=== PATIENT | female | born 1965 | race Caucasian/White ===

== ENCOUNTER → 2016-06-08 | Outpatient (CLI) | payer OTHER ==
[~2016-06-08] VITALS: Ht 175.3 cm; Wt 88.5 kg
[~2016-06-08] MED LIST: ACCUNEB0.63 MG/3 IH; ALLERGY RELIEF1 EAC3 PO; ALLERGY RELIEF10 M5 PO; AMITIZA 24 MCG24 MC1 PO; ASPIRIN EC81 M1 PO; ASPIRIN81 M2 PO; BACLOFEN 10 MG10 MG PO; BACLOFEN 10MG T10 M1 PO; BACLOFEN20 MG PO; BROMOCRIPTINE2.5 M1 PO; BROMOCRIPTINE2.5 M2 PO; BUDEPRION SR150 MG PO; CENTRUM SILVER1 EAC4 PO; CLARITIN10 MG PO; DESYREL100 MG PO; DEXILANT30 MG PO; DEXILANT60 MG PO; DOLOPHINE HCL10 MG PO; DOXYCYCLINE 10100 MG PO; DULCOLAX PO; DUONEB 2.5-0.5 M3 ML IH; ESTRADIOL 1 MG T1 M1 PO; ESTRADIOL1 EAC4 TD; FLOMAX PO; GEMFIBROZIL 60600 MG PO; HORMONE THERAPY; HYDROXYZINE HCL10 M1 PO; HYDROXYZINE HCL25 M1 PO; KLOR-CON 1010 MEQ PO; LAMICTAL XR100 MG PO; LAMICTAL XR300 MG PO; LAMOTRIGINE100 MG PO; LAMOTRIGINE150 MG PO; LASIX 20 MG TAB20 MG PO; LEVAQUIN 500 M500 M1 PO; LIPITOR 20 MG T20 M1 PO; LISINOPRIL20 MG PO; LYRICA 75 MG CA75 MG PO; LYRICA100 MG PO; MEGARED PLANT-300 MG PO; METFORMIN HCL500 MG PO; METHADONE HCL 110 M1 PO; METHADONE HCL 110 MG PO; METHADOSE PO; METHADOSE10 M1 PO; METOCLOPRAM5 MG/5 ML PO; METOCLOPRAMIDE10 MG PO; MOBIC15 MG PO; MUCINEX TA600 MG/TA1 PO; MUCINEX TA600 MG/TA2 PO; MUCINEX600 MG PO; NASONEX17 GM NS; NEURONTIN 300300 M1 PO; OXCARBAZEPINE150 MG PO; OXCARBAZEPINE300 MG PO; OXYCODONE HCL15 MG PO; OXYGEN; PREDNISONE 10 M10 MG PO; PROAIR HFA8.5 GM IH; PROGESTERONE200 MG PO; PROTONIX40 M2 PO; QVAR HFA 880 MCG/UN1 INH; REGLAN 10 MG TA10 M1 PO; REGLAN 10 MG TA10 MG PO; REQUIP 1 MG TABL1 M1 PO; REQUIP0.5 MG PO; RISPERDAL 3 MG T3 M1 PO; RISPERDAL M-TAB2 MG PO; RISPERDAL2 MG PO; ROXICODONE15 M1 PO; SENOKOT-S1 TA1 PO; SEROQUEL 25 MG25 M1 PO; SEROQUEL 25 MG25 MG PO; SINGULAIR 10 MG10 M1 PO; SYMBICORT160 MCG/4. INH; TAMSULOSIN HCL0.4 M1 PO; TRAZODONE 150150 M1 PO; TRILEPTAL 300300 MG PO; TRILEPTAL150 MG PO; VENTOLIN HFA 1818 GM INH; VENTOLIN17 GM INH; VITAMIN D 5050000 I1 PO; VITAMIN D PO; VITAMIN D3400 UNIT PO; VOLTAREN GEL 1100 G2 TOP; ZANTAC 7575 MG PO; [UNRECOGNIZED DRUG - CODE] PO; [UNRECOGNIZED DRUG - OTHER] PO; [UNRECOGNIZED DRUG - OTHER] PO
--- NOTE | ~2016-06-08 | HPC ---
[facility] [address] [place] [address] PAIN MANAGEMENT CONSULTATION Name: SUNNY DENSON [id number] Admission: 06/08/16 Attend Phys: Mike Fernandez DO Discharge: Date of : 63 Report #: [id number] THIS REPORT FOR: //name// CC: Mike Fernandez DO HISTORY OF PRESENT ILLNESS: The patient is a 50-year-old female typically treated for lumbar radiculopathy status post decompressive laminectomy, neuropathic pain requiring complex medication management. She was last seen in the pain clinic 05/15/2016, continued on her baseline narcotic, methadone 10 mg 2 in the morning, 1 at noon, and 2 at night, oxycodone 15 mg 4 times a day. She uses two membrane stabilizing agents, oxcarbazepine and Lyrica, 300 mg of oxcarbazepine t.i.d. and 100 mg of Lyrica 1 in the morning and 2 at night. She uses Requip for RLS type symptoms 0.5 mg 1 the morning, 2 at night. Last urine drug screen was accomplished at her last visit 05/15/2016, positive for prescribed medications. She returns to pain clinic today with an acute change in symptoms, she had fallen in getting out of bed. She had acute injury to her neck. She does use supplemental oxygen and she fell, her head somewhat got caught between the oxygen tank and the bed. With increasing pain in the neck, left shoulder and arm, she presented to her primary care physician. MRI of the cervical spine was accomplished 05/25/2016. I reviewed the MRI findings with the patient today. 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 PHYSICAL EXAMINATION: NEUROLOGIC: Cranial 2-12 are grossly intact. Cervical range of motion is limited in all planes. Tenderness in the superior cervical facets, left deltoid strength is diminished, triceps on the left diminished to little as well. Hand grasp is symmetric. Deep tendon reflexes remains preserved. Vital signs stable as noted on the EMR. Gait is tandem. ASSESSMENT: 1. Lumbar radiculopathy status post decompressive laminectomy, neuropathic pain requiring complex medication management, stable on baseline narcotics. 2. Cervical radiculopathy with component of cervical spondylosis. RECOMMENDATIONS: 1. Cervical epidural injection under fluoroscopy today. 2. Follow up in 10 days for reevaluation and consideration for left superior cervical facet joint injections depending on clinical exam presentation at that time. ASSESSMENT: Cervical radiculopathy. [address] [address] PAIN MANAGEMENT CONSULTATION Name: SUNNY DENSON Room #: REG [facility] Eason#: [id number] Admission: 06/08/16 Attend Phys: Mike Fernandez DO Discharge: Date of : 63 Report #: [id number] PROCEDURE: Cervical epidural injection under fluoroscopy. PROCEDURE NOTE: After written and informed consent was obtained including risk of dural puncture, spinal cord trauma, paralysis and increased pain, the patient was taken to the fluoroscopy suite and placed in the prone position, with appropriate abdominal bolstering, neck was flexed, palms under the thighs. Skin was prepped with ChloraPrep. Sterile draping was applied. Skin wheal with 1% Xylocaine was raised. A 22-gauge 3-1/2 inch epidural Tuohy needle was placed via a midline approach at the C7-T1 interspace, advanced under biplanar fluoroscopy using continuous loss of resistance. With appropriate loss of resistance at the expected depth on lateral view, the glass loss of resistance syringe was disconnected. A low volume extension tubing was connected to the needle and a 5 mL syringe. Negative aspiration for cerebrospinal fluid or blood was noted. A 1 mL of Omnipaque was injected which showed spread within the epidural space on biplanar fluoroscopy. This was followed with 60 mg of triamcinolone plus 1 mL of 1.5% preservative Xylocaine. Needle was withdrawn to the interspinous ligament, 0.5 mL of Xylocaine was used to flush the needle. The needle was then completely withdrawn. The area was cleansed. Band-Aid was applied. The patient was allowed to move off the procedure table and ambulated to the recovery room, monitored for an appropriate period of time, discharged in good and stable condition. <ELECTRONICALLY SIGNED> By: Mike Fernandez DO 06/08/16 1408 [id number] [id number] Mike Fernandez DO /nt
[2016-06-08 08:09] VITALS: BP 144/86
== END | disposition home or self-care (01) ==
LOC: PAIN 07:04
DX: M54.12 Radiculopathy, cervical region (principal); M54.16 Radiculopathy, lumbar region

== ENCOUNTER → 2016-07-07 | Outpatient (CLI) | payer OTHER ==
[~2016-07-07] VITALS: Ht 170.2 cm; Wt 88.0 kg
--- NOTE | ~2016-07-07 | HPC ---
[facility] [address] [place] [address] PAIN MANAGEMENT CONSULTATION Name: SUNNY DENSON Room #: REG [facility]#: [id number] Admission: 07/07/16 Attend Phys: Mike Fernandez DO Discharge: Date of : 63 Report #: [id number] THIS REPORT FOR: //name// CC: FAM unknown Mike Fernandez HISTORY OF PRESENT ILLNESS: The patient is a very pleasant 51-year-old female, long treated for symptomatic lumbar radiculopathy, status post decompressive laminectomy, requiring complex medication management; component of cervical radiculopathy and restless legs syndrome and neuropathic pain component. The patient was last seen in pain clinic 06/08/2016. We did a cervical epidural injection for what appeared to be cervical radicular symptoms, though she had really nominal efficacy from the injection. She has been maintained on high-dose narcotics, though we have gradually titrated up to this dose, methadone 10 mg 2 tablets in the morning, 1 at noon and 2 at night with oxycodone 15 mg 4 times a day for breakthrough pain. I am aware that this is a supratherapeutic dose by definition, equating to roughly 300 mg of morphine equivalence, though we have tried rotating the lower doses with diminished effectiveness and negative impact on functional status. The patient has been maintained on Lyrica 100 mg t.i.d. (1 in the morning, 2 at night) and oxcarbazepine 300 mg t.i.d. (1 in the morning and 2 at night) with Requip for RLS. She returns to pain clinic today. We had a prolonged visit from 08:00 a.m. to 08:25. Ultimately, taken to the procedure room at 08:26. The patient has had significant change in medical status. Her general education instructor physician has diagnosed primary biliary cirrhosis and somewhat critical hyponatremia. We reviewed her medications. No acetaminophen or significant agents impacting liver status are noted, though she does take Tegretol which is associated with hyponatremia. We have elected to try and wean this agent, decrease from 1 in the morning and 2 at night to b.i.d. for 1 week, at bedtime for 1 week and then off. Discussed that we were using this for neuropathic pain component. May have some increase in the burning, electric sensation of pain. Again, we are also using methadone as her primary opiate with its NMDA receptor activity, which can also help with neuropathic pain component. She tells me today that she is having increasing pain in the left side of her neck and this morning she woke up with her left thumb, index and ring finger numb, with subjective paresthesia. PHYSICAL EXAMINATION: GENERAL: Shows pleasant 51-year-old female, moderately obese. BMI is 30.4 kilograms per meter squared. She continues to smoke and was counseled regarding the same. VITAL SIGNS: Blood pressure is 98/63, pulse 106 and respirations 22. [address] [address] PAIN MANAGEMENT CONSULTATION Name: SUNNY DENSON Room #: REG [facility] Eason#: [id number] Admission: 07/07/16 Attend Phys: Mike Fernandez DO Discharge: Date of : 63 Report #: [id number] NEUROLOGIC: Cranial nerves 2-12 are grossly intact. Cervical range of motion is limited with pain in all planes, though no classic radicular pain, "negative Lhermitte". Pain appears to be in the superior aspect of the cervical facets on the left side. Pain in the left shoulder, though no discrete trigger points are noted. Passive range of motion of the shoulder is good. Upper extremity strength is symmetric for deltoid, biceps and triceps and grasp strength is symmetric. Deep tendon reflexes are preserved. She does, however, have a positive Tinel's over the left radial. ASSESSMENT: Lumbar radiculopathy, status post decompressive laminectomy; chronic pain syndrome, requiring complex medication management and a new diagnosis of primary biliary cirrhosis and hyponatremia. RECOMMENDATIONS: 1. Continue all medications with the caveat that we will wean trileptal due to hyponatremia being a fairly common side effect. 2. What appears to be a component of left carpal tunnel syndrome with paresthesia in the thumb, index and ring finger that is new, noted primarily in the a.m. with positive Tinel's over the radial artery. I suggest the patient purchase an [id number] wrist splint to wear at bedtime for the left wrist. 3. With new diagnosis of cervical spondylosis in the patient who is unable to take nonsteroidal anti-inflammatory medications due to compromised renal function (though she is using topical Voltaren gel with transient efficacy), we have elected to proceed with fluoroscopic-guided cervical facets times 2. ASSESSMENT: Symptomatic cervical spondylosis. PROCEDURE: Cervical facet joint injection times 2 on the left. PROCEDURE NOTE: After written informed consent was obtained, the patient was taken to the fluoroscopy suite and placed in prone position. After localizing the cervical facets, palpation was used to identify the 2 primary pain generators (C2-C3 and C3-C4). We elected to proceed at this level. Two skin wheals with Xylocaine were raised. Two 22-gauge stylet needles were placed to contact posterior aspect of the left C2-C3 and C3-C4 cervical facets, along the middle of the lateral mass. AP and lateral projections showed good needle placement, with needle approaching the posterior aspect of the joints. Negative aspiration was accomplished. Three milligrams of Decadron plus 1 mL of 0.5% preservative-free bupivacaine was injected in each needle. Fluoroscopy time was under 15 seconds. [place] removed. The area was cleansed, Band-Aids applied. The patient monitored for an appropriate period of time and discharged in good and stable condition. Follow up with me in 2 weeks for reevaluation. <ELECTRONICALLY SIGNED> By: Mike Fernandez DO 07/07/16 1138 [id number] Mike Fernandez DO /nt
[2016-07-07 08:07] VITALS: BP 98/63
== END | disposition home or self-care (01) ==
LOC: PAIN 06-16 10:00
DX: M47.812 Spondylosis without myelopathy or radiculopathy, cervical region (principal); M54.16 Radiculopathy, lumbar region; G89.4 Chronic pain syndrome; K74.5 Biliary cirrhosis, unspecified

== ENCOUNTER → 2016-07-28 | Outpatient (CLI) | payer OTHER ==
[~2016-07-28] VITALS: Ht 170.2 cm; Wt 88.0 kg
[~2016-07-28] MED LIST changes: +ACTIGALL300 MG PO; +LINZESS145 MCG PO
--- NOTE | ~2016-07-28 | HPC ---
[facility] [address] [place] [address] PAIN MANAGEMENT CONSULTATION Name: SUNNY DENSON [facility]: [facility] [id number] Admission: 07/28/16 Attend Phys: Mike Fernandez DO Discharge: Date of : 63 Report #: [id number] THIS REPORT FOR: //name// CC: FAM unknown Mike Fernandez The patient is a very pleasant 51-year-old female, well known to the pain clinic, being treated for lumbar radiculopathy, status post decompressive laminectomy, restless leg syndrome, neuropathic pain, requiring complex medication management. At last visit, we noted component of cervical spondylosis and cervical radiculopathy. She was given a cervical epidural injection on 06/08/2016 with nominal improvement of symptoms. Pain was primarily in left neck. At last visit 07/07/2016, I proceed with left C2-C3 and C3-C4 cervical facet joint injections done under fluoroscopy. The patient returns to pain clinic today, noting that injection provided near 100% relief, which is ongoing. Neck, shoulders, and arm is actually much better. She did unfortunately fall last week. She states that her left ankle "gave out". Objectively, physical exam remains symmetric. She does have a little edema over the lateral aspect of the ankle. It appears she sprained her ankle. Unfortunately, she also fell on outstretched left wrist. She has followed up with Orthopedics. By report, there are no osseous injuries, though she does have soft tissue injury in the wrist, and is now immobilizing the left wrist. From a pain standpoint, she states she is doing reasonably well. Subsequent to the fall, she has some low back pain, but it does not radiate into the buttocks. No saddle anesthesia. No myelopathic symptoms were noted. PHYSICAL EXAMINATION: Otherwise relatively unchanged. A 51-year-old female, BMI is 30.4 kilograms per meter squared. Blood pressure is 158/72, pulse is 96, respirations 16. Subjective pain score is 6 on a 0-10 visual analog scale. Rises from the chair using armrest. Gait is modestly antalgic. Though lower extremity strength is symmetric. Again, little bit of pain in the left ankle, some edema here, but the mortise is intact. Lumbar flexion is limited. We reviewed the fact that opiate medications are being used to provide analgesia adequate to support activities of daily living, not attempting to achieve a specific pain score on the 0-10 Visual Analog Scale. The current opiate medications are providing sufficient analgesia to allow the patient to participate in activities of daily living. The patient is not exhibiting any aberrant behavior suggestive of drug diversion. The patient is not having any adverse reactions to medications. The patient is not suffering from daytime somnolence or mental acuity changes. The patient is managing opiate-induced constipation with appropriate akbo-xcm-nacemux agents and dietary considerations. The patient was counseled on concern for caution with operating [address] [address] PAIN MANAGEMENT CONSULTATION Name: SUNNY DENSON Room #: REG [facility] Eason#: [id number] Admission: 07/28/16 Attend Phys: Mike Fernandez DO Discharge: Date of : 63 Report #: [id number] a motor vehicle while using opiate medications. A physical exam was performed and the patient's functional status was evaluated. All patients with back pain were advised against the bed rest greater than 4 days and were advised to return to normal activities. Pain score assessment was noted and the treatment plan was reviewed with the patient. All current medications, both prescribed and OTC were reviewed and reconciled on the electronic medical record. Tobacco screening was accomplished and smoking cessation was advised when indicated. BMI was noted and diet/exercise modification was recommended for all patients following outside normal parameters. I reviewed with the patient today their responsibilities to safeguard prescription medications, reviewed their responsibility to utilize medications only as prescribed by the physician. They are to seek and receive pain medications only from 1 physician group ( [facility]). They are to use 1 pharmacy and keep the clinic informed if they change pharmacies. Their responsibilities include making followup visits in a timely fashion and to avoid abrupt discontinuation of medication usage. Their responsibilities further include bringing their medications (bottles from the pharmacy with residual pills) to the visit for possible confirmation of pill counts and the patient understands it is their responsibility to submit to random drug screens to ensure both that the medications prescribed are present, and that no other controlled substances are present. All prescriptions provided today were generated electronically. ASSESSMENT: Lumbar radiculopathy, status post decompressive laminectomy, neuropathic pain requiring complex medication management, left cervical spondylosis, stable on baseline medications. RECOMMENDATION: Continue methadone 10 mg 2 in the morning, 1 at noon, and 2 at night, oxycodone 15 mg 4 times a day, Lyrica 100 mg 1 in the morning and 2 at night. We did wean oxcarbazepine at last visit due to some hyponatremia. RECOMMENDATIONS: The patient notes she has successfully weaned this agent. No dramatic change in neuropathic pain or functional status. I have taken the liberty of writing for 3 months of current medications. Follow up at that time, earlier if needed. <ELECTRONICALLY SIGNED> By: Mike Fernandez DO 07/31/16 1538 [id number] Mike Fernandez DO /karri
[2016-07-28 08:25] VITALS: BP 158/72
== END ==
LOC: PAIN 06:41
DX: M47.22 Other spondylosis with radiculopathy, cervical region (principal); M96.1 Postlaminectomy syndrome, not elsewhere classified; G25.81 Restless legs syndrome; I10 Essential (primary) hypertension; F32.9 Major depressive disorder, single episode, unspecified; F17.210 Nicotine dependence, cigarettes, uncomplicated

== ENCOUNTER → 2016-08-10 | Outpatient (CLI) | payer OTHER ==
[~2016-08-10] VITALS: Ht 170.2 cm; Wt 88.9 kg
--- NOTE | ~2016-08-10 | HPC ---
[facility] [place] [address] PAIN MANAGEMENT CONSULTATION Name: SUNNY DENSON Room #: REG [facility].#: [id number] Admission: 08/10/16 Attend Phys: Mike Fernandez DO Discharge: Date of : 63 Report #: [id number] THIS REPORT FOR: //name// CC: JEREMY Fernandez The patient is a 51-year-old female long known to the pain clinic, typically treated for lumbar radiculopathy status post decompressive laminectomy, chronic pain syndrome requiring complex medication management. The patient presents to pain clinic today with increasing pain. Chronic axial back and radicular pain remains problematic. Last visit 07/28/2016, the patient had been in the hospital with multiple issues, specifically noting hyponatremia. Her physicians had suggested she wean Tegretol, which we did. Unfortunately, this has significantly exacerbated her neuropathic pain. She has now been ostensibly stable for some time. With increasing pain, we elected to restart her oxcarbazepine, we will start at simply one 150 mg tablet at bedtime for 3 nights and then titrate up to b.i.d. Will otherwise continue baseline narcotic medication unchanged, including baclofen 20 mg b.i.d.; methadone 10 mg 2 in the morning, 1 at noon, 2 at night and oxycodone 15 mg immediate release up to 4 a day. She is having increasing pain in her neck, left side. We had done cervical facet joint injections in this area in the past with greater than 80% overall improvement for many months. PHYSICAL EXAMINATION: Shows specific tenderness over the superior facets on the left side. Pain is exacerbated with cervical rotation and flexion, extension. No radicular component is noted. ASSESSMENT #1: Symptomatic lumbar radiculopathy status post decompressive laminectomy with neuropathic pain component. RECOMMENDATIONS: We will resume oxcarbazepine as noted above. ASSESSMENT #2: Acute exacerbation of cervical spondylosis. RECOMMENDATIONS: Left C2-C3 and C3-C4 facet joint injections under fluoroscopy. PROCEDURE NOTE: After written informed consent was obtained, the patient was taken to the fluoroscopy suite and placed in prone position. After sterile prep and drape, skin wheal was raised. Two 22-gauge stylet needles were placed to contact posterior aspect of the left C2-C3 and left C3-C4 cervical facet. The AP and lateral projections showed good needle placement. A 20 mg triamcinolone plus 1 mL of 0.5% preservative-free bupivacaine was injected into and around both joints. Needle was removed, area was cleansed, Band-Aids applied. The [address] [address] PAIN MANAGEMENT CONSULTATION Name: SUNNY DENSON Room #: REG JA[facility]INE Eason#: [id number] Admission: 08/10/16 Attend Phys: Mike Fernandez DO Discharge: Date of : 63 Report #: [id number] patient monitored for an appropriate period of time, discharged in good and stable condition, noting dramatic improvement of baseline pain, in fact, noting her neck pain was absent on discharge. <ELECTRONICALLY SIGNED> By: Mike Fernandez DO 08/11/16 1308 [id number] 0719 Mike Fernandez DO /nt
[2016-08-10 12:42] VITALS: BP 159/90
== END ==
LOC: PAIN 09:51
DX: M47.812 Spondylosis without myelopathy or radiculopathy, cervical region (principal); M54.16 Radiculopathy, lumbar region; M96.1 Postlaminectomy syndrome, not elsewhere classified; G89.4 Chronic pain syndrome; I10 Essential (primary) hypertension; F17.210 Nicotine dependence, cigarettes, uncomplicated; F32.9 Major depressive disorder, single episode, unspecified

== ENCOUNTER → 2016-10-19 | Outpatient (CLI) | payer OTHER ==
[~2016-10-19] VITALS: Ht 170.2 cm; Wt 91.2 kg
[2016-10-19 10:01] VITALS: BP 119/74
== END | disposition home or self-care (01) ==
LOC: PAIN 06:44
DX: M47.22 Other spondylosis with radiculopathy, cervical region (principal); G62.9 Polyneuropathy, unspecified; Z98.890 Other specified postprocedural states; G30.9 Alzheimer's disease, unspecified; F02.80 Dementia in other diseases classified elsewhere, unspecified severity, without behavioral disturbance, psychotic disturbance, mood disturbance, and anxiety; F17.200 Nicotine dependence, unspecified, uncomplicated

== ENCOUNTER → 2017-01-12 | Outpatient (CLI) | payer OTHER ==
[~2017-01-12] VITALS: Ht 170.2 cm; Wt 90.9 kg
[~2017-01-12] MED LIST changes: +ASPIR 8181 M1 PO
--- NOTE | ~2017-01-12 | HPC ---
[facility] [place] [address] PAIN MANAGEMENT CONSULTATION Name: SUNNY DENSON Room #: REG CL Jenaro#: [id number] Admission: 01/12/17 Attend Phys: Mike Fernandez DO Discharge: Date of : 63 Report #: [id number] THIS REPORT FOR: //name// CC: William Fernandez DATE OF SERVICE: 01/12/2017 DATE OF SERVICE: 01/12/2017 HISTORY OF PRESENT ILLNESS: The patient was somewhat pleasant 51-year-old female, long treated for symptomatic lumbar radiculopathy status post decompressive laminectomy, neuropathic pain, cervical radiculopathy requiring high risk complex medication management. Last seen in the pain clinic 10/19/2016. We continued the patient on baseline medication including methadone 10 mg 2 in the morning, 1 at noon, and 2 at night, oxycodone 15 mg 4 times a day, Lyrica 100 mg t.i.d., baclofen 20 mg b.i.d., Voltaren gel topically. Last urine drug screen on 05/15/2016 was positive for prescribed medications. She returns to pain clinic today, she is wearing a surgical dressing on the left upper extremity. She had a left ulnar nerve transposition on 01/03/2017. She has dramatic ecchymosis around the shoulder, upper arm and forearm. She tells me she had a prescription for oxycodone from her surgeon "for a few days." After she left the office; however, we did get a call from the patient's pharmacy, noting that she had just filled yesterday prescription from the surgeon for oxycodone 5 mg, dispensed #84 tablets. Apparently, she had also had a prior prescription 01/04/2017 for oxycodone 10 mg #30 from her primary care physician, ostensibly in anticipation of the surgery. This latter is in direct violation of her opiate consent to treat contract. I was aware of her surgery and told her she could have a short course of pain medication from her surgeon. It appears that she is now more aggressively taking opiates then I had been aware of. She does note that pain is 7 on VAS primary pain remains in the low back, left shoulder with significant pain in the left elbow secondary to the surgery, though this appears to be improving. She still continues to take care of her dytigh-xb-itx (actually her significant other's father) who does have Alzheimer's. During her surgical convalescence, apparently, her significant other's brother came and cared both for the father and for the patient. She continues to smoke and was counseled regarding same. PHYSICAL EXAMINATION: Otherwise, physical exam is unchanged. A 51-year-old female, BMI is 39.4 kilograms per meter squared. Vital signs stable as noted in the EMR. Ecchymosis as noted about the left arm, elbow, forearm down to the wrist. Does have a positive Tinel over the radial aspect of the ulnar. [address] [address] PAIN MANAGEMENT CONSULTATION Name: SUNNY DENSON Room #: REG JAZZMINE Eason#: [id number] Admission: 01/12/17 Attend Phys: Mike Fernandez DO Discharge: Date of : 63 Report #: [id number] is negative on that side. Her surgeon suggested that the paresthesia in the left thumb, index and long finger and the positive Tinel were secondary to blood accumulating and pressing on radial nerve. This seems logical, but suggest she follow up with the hand surgeon if symptoms continue. We reviewed the fact that opiate medications are being used to provide analgesia adequate to support activities of daily living, not attempting to achieve a specific pain score on the 0-10 Visual Analog Scale. The current opiate medications are providing sufficient analgesia to allow the patient to participate in activities of daily living. The patient is not exhibiting any aberrant behavior suggestive of drug diversion. The patient is not having any adverse reactions to medications. The patient is not suffering from daytime somnolence or mental acuity changes. The patient is managing opiate-induced constipation with appropriate sand-ihd-zcadqht agents and dietary considerations. The patient was counseled on concern for caution with operating a motor vehicle while using opiate medications. A physical exam was performed and the patient's functional status was evaluated. All patients with back pain were advised against the bed rest greater than 4 days and were advised to return to normal activities. Pain score assessment was noted and the treatment plan was reviewed with the patient. All current medications, both prescribed and OTC were reviewed and reconciled on the electronic medical record. Tobacco screening was accomplished and smoking cessation was advised when indicated. BMI was noted and diet/exercise modification was recommended for all patients following outside normal parameters. I reviewed with the patient today their responsibilities to safeguard prescription medications, reviewed their responsibility to utilize medications only as prescribed by the physician. They are to seek and receive pain medications only from 1 physician group ([facility]). They are to use 1 pharmacy and keep the clinic informed if they change pharmacies. Their responsibilities include making followup visits in a timely fashion and to avoid abrupt discontinuation of medication usage. Their responsibilities further include bringing their medications (bottles from the pharmacy with residual pills) to the visit for possible confirmation of pill counts and the patient understands it is their responsibility to submit to random drug screens to ensure both that the medications prescribed are present, and that no other controlled substances are present. All prescriptions provided today were generated electronically. ASSESSMENT: Lumbar radiculopathy status post decompressive laminectomy, neuropathic pain requiring high risk complex medication management. Cervical radiculopathy with status post left ulnar transposition. The patient with multiple psychiatric comorbidities on many central acting drugs including trazodone, Requip, Lamictal, Risperdal. RECOMMENDATION: Continue baseline medication unchanged, methadone 10 mg 2 in [facility] [address] [place] [address] PAIN MANAGEMENT CONSULTATION Name: SUNNY DENSON Room #: REG [facility].#: [id number] Admission: 01/12/17 Attend Phys: Mike Fernandez DO Discharge: Date of : 63 Report #: [id number] the morning, 1 at noon, and 2 at night, oxycodone 15 mg 4 times a day, limit #120 tablets. Does not require prescription for Lyrica, baclofen or Voltaren gel topically. Of note, after I received contact from her pharmacy stating she had had 84 oxycodone 5 mg tablets filled yesterday, this should equate to 28 oxycodone 15 mg tablets. I asked the pharmacist to decrease her initial prescription from 120 to 100 tablets. We will address this at her next visit. Buccal swab was accomplished today. In total, approximately 30 minutes was spent with the patient counseling the patient and reviewing interval history. By: 1230 1517 Mike Fernandez DO /karri
[2017-01-12 08:32] VITALS: BP 136/71
== END | disposition home or self-care (01) ==
LOC: PAIN 06:56
DX: M54.16 Radiculopathy, lumbar region (principal); Z98.890 Other specified postprocedural states; G62.9 Polyneuropathy, unspecified; M54.12 Radiculopathy, cervical region; Z68.39 Body mass index [BMI] 39.0-39.9, adult; Z79.899 Other long term (current) drug therapy; F17.200 Nicotine dependence, unspecified, uncomplicated

== ENCOUNTER → 2017-03-30 | Outpatient (CLI) | payer OTHER ==
[~2017-03-30] VITALS: Ht 170.2 cm; Wt 93.7 kg
[~2017-03-30] MED LIST changes: -ACCUNEB0.63 MG/3 IH; +ALBUTEROL2.5 MG/31 INH; +CLONIDINE0.1 PO; +COMBIVENT INH; +CYMBALTA60 MG PO; +ESTROVEN MAX400 MCG PO; -LAMICTAL XR300 MG PO; +LIORESAL 10 MG10 MG PO; +METHADONE HCL5 MG PO; +NAMENDA 10 MG T10 MG PO; +OXYCODONE HCL10 MG PO; +PROBIOTIC1 EAC1 PO; +RANITIDINE HCL300 MG PO; +TRAZODONE HCL100 MG PO; +VICTOZA0.6 MG/0.1 SUBQ; +XYZAL5 MG PO; +[UNRECOGNIZED DRUG - OTHER] PO; +[UNRECOGNIZED DRUG - OTHER] PO
--- NOTE | ~2017-03-30 | HPC ---
[facility] [place] [address] PAIN MANAGEMENT CONSULTATION Name: SUNNY DENSON [id number] Admission: 03/30/17 Attend Phys: Mike Fernandez DO Discharge: Date of : 63 Report #: [id number] THIS REPORT FOR: //name// CC: JEREMY Fernandez The patient is a 51-year-old female, long treated by myself for lumbar radiculopathy status post decompressive laminectomy, status post thoracic decompressive laminectomy, neuropathic pain, requiring high risk complex medication management. The patient was last seen in the pain clinic 01/12/2017. Continued on baseline opiate medications including methadone 10 mg 2 in the morning, 1 at noon, and 2 at night; oxycodone 15 mg 4 times a day, and Lyrica 100 mg t.i.d. Buccal drug swab at last visit was positive for prescribed medications and no others. The patient returns to pain clinic today. Generally, she notes medications are providing sufficient analgesia to participate in activities of daily living. We did; however, have a long discussion today about other medical concerns. The patient was hospitalized at [facility] about 3 weeks ago for exacerbation of COPD. She was in the hospital for 2 days. She was placed on steroids and antibiotics for bronchitis infection. She returns to pain clinic today. She has an unique complaint, she is feeling a little more sedated this morning and some episodic jerking of her arm. PHYSICAL EXAMINATION: Shows a 51-year-old female, BMI is 32.4 kg/m2. Blood pressure 102/61, pulse is 113, respirations 16, and room air oxygen saturation 92%. Cervical range of motion is full. Extraocular muscles are intact. There is no nystagmus or lateral gaze deviation. Upper extremity strength is symmetric. Deep tendon reflexes for the biceps, triceps, and brachioradialis are symmetric. Axial back pain. Modestly antalgic gait. Lumbar flexion is limited. Coarse breath sounds. Long discussion with the patient today about therapeutic options. She was seen for a prolonged visit from 8:15-8:40, greater than 50% of this 25+ minute visit was spent counseling the patient. I believe she may be exhibiting some CO2 narcosis. With COPD and high dose opiates, though she has been stable on these doses for some time, there are no other medical changes and hypercapnia is the only thing I can think of that might account for her somnolence and somewhat jerking today. I have asked the patient to decrease her methadone by 20%, decrease from [address] to [address] [address] PAIN MANAGEMENT CONSULTATION Name: SUNNY DENSON Room #: REG JAZZMIEN Eason#: [id number] Admission: 03/30/17 Attend Phys: Mike Fernandez DO Discharge: Date of : 63 Report #: [id number] tablets a day and use oxycodone with increased vigilance, try and drop to 3 a day or even half tablets for breakthrough pain. We will try and wean opiates at least over the next week and evaluate efficacy. We reviewed the fact that opiate medications are being used to provide analgesia adequate to support activities of daily living, not attempting to achieve a specific pain score on the 0-10 Visual Analog Scale. The current opiate medications are providing sufficient analgesia to allow the patient to participate in activities of daily living. The patient is not exhibiting any aberrant behavior suggestive of drug diversion. The patient is not having any adverse reactions to medications. The patient is not suffering from daytime somnolence or mental acuity changes. The patient is managing opiate-induced constipation with appropriate oeis-neo-elxirei agents and dietary considerations. The patient was counseled on concern for caution with operating a motor vehicle while using opiate medications. A physical exam was performed and the patient's functional status was evaluated. All patients with back pain were advised against the bed rest greater than 4 days and were advised to return to normal activities. Pain score assessment was noted and the treatment plan was reviewed with the patient. All current medications, both prescribed and OTC were reviewed and reconciled on the electronic medical record. Tobacco screening was accomplished and smoking cessation was advised when indicated. BMI was noted and diet/exercise modification was recommended for all patients following outside normal parameters. I reviewed with the patient today their responsibilities to safeguard prescription medications, reviewed their responsibility to utilize medications only as prescribed by the physician. They are to seek and receive pain medications only from 1 physician group ( [facility]). They are to use 1 pharmacy and keep the clinic informed if they change pharmacies. Their responsibilities include making followup visits in a timely fashion and to avoid abrupt discontinuation of medication usage. Their responsibilities further include bringing their medications (bottles from the pharmacy with residual pills) to the visit for possible confirmation of pill counts and the patient understands it is their responsibility to submit to random drug screens to ensure both that the medications prescribed are present, and that no other controlled substances are present. All prescriptions provided today were generated electronically. ASSESSMENT: Symptomatic lumbar radiculopathy status post decompressive laminectomy, neuropathic pain, requiring high risk complex medication management, significant exacerbation of chronic obstructive pulmonary disease issues. RECOMMENDATION: Again, prolonged visit with the patient today, we will renew [facility] [address] [place] [address] PAIN MANAGEMENT CONSULTATION Name: SUNNY DENSON Room #: REG [facility]#: [id number] Admission: 03/30/17 Attend Phys: Mike Fernandez DO Discharge: Date of : 63 Report #: [id number] current medications with the prescriptions unchanged, but with the directions given to the patient and written in her discharge to decrease methadone to one tablet at bedtime and try and use half to one oxycodone tablet decreasing from 4-3 a day as able. Continue Lyrica unchanged 100 mg 3 times a day. Discharged in good and stable condition. <ELECTRONICALLY SIGNED> By: Mike Fernandez DO 04/12/17 0913 [id number] [id number] Mike Fernandez DO /nt
[2017-03-30 08:12] VITALS: BP 102/61
== END ==
LOC: PAIN 07:29
DX: M54.16 Radiculopathy, lumbar region (principal); M79.1 Myalgia; Z98.890 Other specified postprocedural states; Z79.899 Other long term (current) drug therapy

== ENCOUNTER → 2017-06-29 | Outpatient (CLI) | payer OTHER ==
[~2017-06-29] VITALS: Ht 170.2 cm; Wt 91.4 kg
--- NOTE | ~2017-06-29 | HPC ---
[facility] [place] [address] PAIN MANAGEMENT CONSULTATION Name: SUNNY DENSON Room #: REG [facility] M..#: [id number] Admission: 06/29/17 Attend Phys: Mike Fernandez DO Discharge: Date of : 63 Report #: [id number] THIS REPORT FOR: //name// CC: JEREMY Fernandez DATE OF SERVICE: 06/29/2017 The patient is a 52-year-old female, long treated by myself for chronic pain syndrome. She is status post thoracic decompressive laminectomy, lumbar decompressive laminectomy, component of neuropathic pain requiring high-risk complex medication management. She has multiple psychiatric comorbidities including bipolar disorder. She has been remarkably stable over the past near decade that I have treated her. Last seen in the Pain Clinic 03/30/2017. She has been stable on high dose opiate, methadone 10 mg 2 in the morning, 1 at noon, and 2 at night; oxycodone 15 mg up to 4 a day. This equates to about 290 mEq of morphine. Lyrica 100 mg t.i.d. Returns to the Pain Clinic today. We had a prolonged visit from 08:17 to 08:45. Greater than 50% of the 25+ minute visit was spent counseling the patient. In the interval since we last saw her, she had been in the hospital for pneumonia (2-1/2 days at [facility]). She has continued to smoke, was counseled regarding same. She uses supplemental oxygen (she has been on this for some time), oxygen concentrator she runs at 4 liters per minute during the day and 5 liters at night. She has had her bottom teeth extracted 3 weeks ago and top teeth extracted last week. She has some temporary dentures, which are ill-fitting; however, she is scheduled to get her permanent dentures fitted is about 7-8 weeks. After her second dental extraction, she had poor reaction to the anesthetic. She felt "foggy" at home and did fall. She states her legs "gave out." Unfortunately, she suffered a strain in the left foot. She did present to the ER. Vital signs are stable. She does, however, have ankle stabilizer she is wearing presently. Primary pain is in the low back, buttocks and legs. PHYSICAL EXAMINATION: Shows a 52-year-old female, BMI is elevated at 31.6 kg/m2. Blood pressure is 131/55, pulse 106, respirations 18, oxygen saturation on 4 liters per minute nasal cannula is 97%. She is alert and oriented to person, place and time, judged to be a reasonable historian. Again, edentulous presently. Cervical range of motion is full. Upper extremity strength is preserved. She is tense across the low back. Objectively, lower extremity strength is symmetric to dorsiflexion, plantar flexion, [place] [address] PAIN MANAGEMENT CONSULTATION Name: SUNNY DENSON Room #: REG JAZZMINE Eason#: [id number] Admission: 06/29/17 Attend Phys: Mike Fernandez DO Discharge: Date of : 63 Report #: [id number] extension and hip flexion. All muscles tested about 4/5 strength. Diffuse tenderness across the low back in the SI area. No discrete trigger points are noted. Gait is tandem, mildly antalgic favoring the left ankle. I reviewed the opiate consent to treat contract. We reviewed the fact that opiate medications are being used to provide analgesia adequate to support activities of daily living, not attempting to achieve a specific pain score on the 0-10 Visual Analog Scale. The current opiate medications are providing sufficient analgesia to allow the patient to participate in activities of daily living. The patient is not exhibiting any aberrant behavior suggestive of drug diversion. The patient is not having any adverse reactions to medications. The patient is not suffering from daytime somnolence or mental acuity changes. The patient is managing opiate-induced constipation with appropriate xeox-ycx-vmnfujg agents and dietary considerations. The patient was counseled on concern for caution with operating a motor vehicle while using opiate medications. A physical exam was performed and the patient's functional status was evaluated. All patients with back pain were advised against the bed rest greater than 4 days and were advised to return to normal activities. Pain score assessment was noted and the treatment plan was reviewed with the patient. All current medications, both prescribed and OTC were reviewed and reconciled on the electronic medical record. Tobacco screening was accomplished and smoking cessation was advised when indicated. BMI was noted and diet/exercise modification was recommended for all patients following outside normal parameters. I reviewed with the patient today their responsibilities to safeguard prescription medications, reviewed their responsibility to utilize medications only as prescribed by the physician. They are to seek and receive pain medications only from 1 physician group ( [facility]). They are to use 1 pharmacy and keep the clinic informed if they change pharmacies. Their responsibilities include making followup visits in a timely fashion and to avoid abrupt discontinuation of medication usage. Their responsibilities further include bringing their medications (bottles from the pharmacy with residual pills) to the visit for possible confirmation of pill counts and the patient understands it is their responsibility to submit to random drug screens to ensure both that the medications prescribed are present, and that no other controlled substances are present. All prescriptions provided today were generated electronically. ASSESSMENT: Chronic pain syndrome, status post thoracic and lumbar decompressive laminectomy surgeries (at different times), neuropathic pain, chronic obstructive pulmonary disease requiring complex medication management. [facility] [address] [place] [address] PAIN MANAGEMENT CONSULTATION Name: SUNNY DENSON Room #: REG [facility].#: [id number] Admission: 06/29/17 Attend Phys: Mike Fernandez DO Discharge: Date of : 63 Report #: [id number] RECOMMENDATIONS: 1. Again, counseled regarding smoking cessation. 2. Discussed increasing physical activity. She does take her father to the mall and walk nearly daily. 3. We talked at length about opiate-induced hyperalgesia. We elected to lower methadone from 2 tablets in the morning, 1 at noon, and 2 at night to 2 tablets in the morning, 1 at noon and 1 at night (decreasing from 50 to 40 mg methadone a day or roughly 200 to 160 morphine milliequivalents). 4. Continue oxycodone 15 mg 4 a day. I have taken the liberty of writing for only 2 months' current medication. We will reevaluate at that time. Hopefully, we can either continue to drop methadone or lower oxycodone. May consider dropping to oxycodone 10 four a day (going from 60 oxycodone or 90 mEq of morphine to 40 mg oxycodone or 60 mEq of morphine). Discharged in good and stable condition. I did also renew her Lyrica and baclofen. <ELECTRONICALLY SIGNED> By: Mike Fernandez DO 07/02/17 0813 [id number] Mike Fernandez DO /nt
[2017-06-29 08:11] VITALS: BP 131/55
== END ==
LOC: PAIN 06:40
DX: G89.29 Other chronic pain (principal); M96.1 Postlaminectomy syndrome, not elsewhere classified; M79.2 Neuralgia and neuritis, unspecified; J44.9 Chronic obstructive pulmonary disease, unspecified; Z79.899 Other long term (current) drug therapy

== ENCOUNTER → 2017-09-21 | Outpatient (CLI) | payer OTHER ==
[~2017-09-21] VITALS: Ht 170.2 cm; Wt 91.1 kg
[~2017-09-21] MED LIST changes: +ACCUNEB0.63 MG/3 IH; -ALBUTEROL2.5 MG/31 INH; -CYMBALTA60 MG PO; -ESTROVEN MAX400 MCG PO; +LAMICTAL XR300 MG PO; -LIORESAL 10 MG10 MG PO; -NAMENDA 10 MG T10 MG PO; -RANITIDINE HCL300 MG PO; -TRAZODONE HCL100 MG PO; -VICTOZA0.6 MG/0.1 SUBQ; -XYZAL5 MG PO; -[UNRECOGNIZED DRUG - OTHER] PO; -[UNRECOGNIZED DRUG - OTHER] PO
--- NOTE | ~2017-09-21 | HPC ---
[facility] [address] [place] [address] PAIN MANAGEMENT CONSULTATION Name: SUNNY DENSON Room #: REG [facility] M..#: [id number] Admission: 09/21/17 Attend Phys: Mike Fernandez DO Discharge: Date of : 63 Report #: [id number] THIS REPORT FOR: //name// CC: JEREMY QUESADA Physician staff Mike Fernandez The patient is a 52-year-old female long known to the pain clinic for ongoing axial back pain. She is status post both cervical and lumbar decompressive laminectomies, has chronic pain syndrome requiring complex medication management with a component of lumbosacral spondylosis without myelopathy. Comorbidity includes significant psychiatric disease (multi-personality disorder), history of COPD and continues to smoke. Last visit on 08/24/2017, we had continued opiate wean, she had been taking close to 290 milligram morphine equivalents via methadone 10 mg 5 a day and oxycodone 15 mg 4 a day. In June, we had weaned methadone down to 4 a day decreasing her overall total load to 250 mg. Last visit, we decreased the oxycodone from 15 to 10 mg. She returns to the pain clinic today noting that pain seems to be increasing in the low back. She is still at a supratherapeutic load of opiate with 220 milligram morphine equivalents a day. She was desirous of going back to the prior higher opiate load. Today, we had a long discussion about concerns for supratherapeutic opiates particularly in patients with COPD. I pointed out that respiratory drive depends on two factors, hypoxia and hypercapnia. She is somewhat negating the hypoxic drive with supplemental nasal cannula oxygen. Concerned that with respiratory function relying simply on hypercapnia, opiate loads tend to raise the hypercapnic respiratory drive threshold. PHYSICAL EXAMINATION: Does show a pleasant 52-year-old female, again she continued to smoke and was counseled regarding the same. She claims that her grandchildren are coming on 10/16 and she has a smoking stop date at that time though she has no other plans in place to help with this goal. Vital signs are stable. The oxygen saturation is low even with supplemental oxygen in the low 90s. She rises from chair using armrest. Diffuse tenderness in the SI area with grossly positive Seven test and Gaenslen's test bilaterally. A well-healed surgical scar is compatible with multiple back surgeries. ASSESSMENT #1: Symptomatic lumbar radiculopathy, status post decompressive laminectomy, axial back pain, status post thoracic laminectomy as well, chronic obstructive pulmonary disease, requiring complex medication management. RECOMMENDATIONS: After a long discussion with the patient, we elected to continue current medication including methadone 10 mg 4 a day and oxycodone [address] [address] PAIN MANAGEMENT CONSULTATION Name: SUNNY DENSON Room #: REG CL Jenaro#: [id number] Admission: 09/21/17 Attend Phys: Mike Fernandez DO Discharge: Date of : 63 Report #: [id number] mg 4 a day along with Lyrica 100 mg t.i.d. and clonidine currently at 0.1 at bedtime along with Requip multi-dose throughout the day. We will increase the clonidine to 2 at bedtime to see if this will help some with pain as there is some synergy; will increase to 1 in the morning and 2 at night if she has no postural hypotension. I wrote for 2 months of the current medication and (including release "today" Rx, release in 4 and 8-week release prescriptions) we will try decreasing from 40 to 35 mg of methadone, 10 mg t.i.d. with a second prescription for 5 mg in the morning on the "8 week release Rx". This should decrease her overall morphine load down to about 200 mg. While still supratherapeutic, it is about a 33% decrease in her prior long-term dose of 290 milligram morphine equivalents daily (methadone 10 mg 5 a day and oxycodone 15 mg 4 a day). I will have the patient follow up with Dr. Allen Kumar. ASSESSMENT #2: Acute exacerbation of sacroiliac mediated pain, new diagnosis. RECOMMENDATIONS: Bilateral SI joint injection under fluoroscopy. PROCEDURE NOTE: After written and informed consent was obtained including risk of infection, nerve trauma, increased pain and weakness, the patient wishes to proceed. The patient was taken to the fluoroscopy suite, placed in the prone position. The sacroiliac joint was visualized using the C-arm, turned in an oblique fashion to align the joint. The skin overlying the area was cleansed with ChloraPrep. Skin wheal with Xylocaine was raised. A 22 gauge spinal needle was inserted into the inferior aspect of the joint. A low volume extension tubing was then attached to the needle after the stylet was removed. Negative aspiration was accomplished. A 1 mL of Omnipaque was injected which showed spread within the SI joint. 40 mg triamcinolone plus 2 mL of 0.5% preservative-free bupivacaine was injected into the joint. Needle was removed. Attention was then turned to the contralateral joint which was treated in an identical fashion. After both needles were removed the prep was washed off. Two Band-Aids were applied over the puncture sites. The patient was allowed to ambulate to the recovery room, monitored for an appropriate period of time, discharged in good and stable condition. <ELECTRONICALLY SIGNED> By: Mike Fernandez DO 09/24/17 0710 0919 1220 Mike Fernandez DO /nt
[2017-09-21 08:10] VITALS: BP 150/85
== END | disposition home or self-care (01) ==
LOC: PAIN 06:42
DX: M53.3 Sacrococcygeal disorders, not elsewhere classified (principal); M54.16 Radiculopathy, lumbar region; J44.9 Chronic obstructive pulmonary disease, unspecified; Z79.899 Other long term (current) drug therapy; F17.210 Nicotine dependence, cigarettes, uncomplicated; M47.16 Other spondylosis with myelopathy, lumbar region

== ENCOUNTER → 2017-10-19 | Outpatient (CLI) | payer OTHER ==
[~2017-10-19] VITALS: Ht 170.2 cm; Wt 88.4 kg
[~2017-10-19] MED LIST changes: +CYMBALTA60 MG PO; +NAMENDA 10 MG T10 MG PO
--- NOTE | ~2017-10-19 | HPC ---
[facility] [place] [address] [place] [address] PAIN MANAGEMENT CONSULTATION Name: SUNNY DENSON Room #: REG [facility] M.R.#: [id number] Admission: 10/19/17 Attend Phys: Mike Fernandez DO Discharge: Date of : 63 Report #: [id number] THIS REPORT FOR: //name// CC: JEREMY QUESADA Physician staff Mike Fernandez DATE OF SERVICE: 10/19/2017 The patient is a pleasant 52-year-old female. She has long been treated in the Pain Clinic for chronic pain concerns, axial back pain status post both cervical, thoracic and lumbar decompressive laminectomies, requiring complex medication management, component of SI mediated sacral spondylitic pain. The patient had been titrated over time and stable for a number of years on high dose opiate, methadone 10 mg 5 a day, oxycodone 15 mg 4 a day. This equates to roughly 290 mg of morphine equivalents. Over the past year, we have gradually been weaning down to 250, 220 and most recently down to 200 mg MS equivalents a day. In the interval since we last saw her (09/21/2017), patient was admitted to the hospital with pneumonia. She was actually in the ICU for about 3 days, in the hospital for 3 weeks. Nonetheless, she continues to smoke and uses supplemental oxygen, but she was finally able to listen to another physician's admonition that high-dose opiates and respiratory concerns are complicating issues. I have stressed at multiple visits, we are trying to wean her opiate analgesics due to concern for opiate elevation of hypercapnic respiratory drive. The patient uses supplemental oxygen, somewhat minimizing her hypoxic respiratory drive component. Fortunately, after her last hospitalization, she self-weaned her opiate a little further from 35 down to 30 mg methadone a day, currently taking two 10 mg tablets in the morning and one in the evening. She limits her oxycodone 10 mg tablet to 4 a day. He returns to Pain Clinic today; however, noting significant burning dysesthesia pain in the mid back bilateral from about L2 down into the buttocks and legs, burning dysesthesia. The patient is on therapeutic dose of oxcarbazepine 300 mg b.i.d., therapeutic dose of Lyrica at 100 mg, 1 in the morning and 2 at night. This agent may be pushed a little higher. I believe therapeutic ceiling is around 600 mg. Nonetheless, patient continues on other adjuvant medications including ReQuip, clonidine, and baclofen. She returns to Pain Clinic today. She is tearful, frustrated, noting that as [address] [address] PAIN MANAGEMENT CONSULTATION Name: SUNNY DENSON Room #: REG [facility] Radhames.#: [id number] Admission: 10/19/17 Attend Phys: Mike Fernandez DO Discharge: Date of : 63 Report #: [id number] she has weaned down on her opiate analgesic now below 200 mg equivalents a day, she is significantly disabled by pain. Her functional status is dwindling. She rates the pain 8 on a VAS and again pain from bilateral lumbar paravertebral muscles into the SI joint, buttocks, and down the legs with a burning dysesthesia in L4-L5 distribution. PHYSICAL EXAMINATION: Shows a pleasant 52-year-old female using supplemental oxygen. Oxygen saturation 96% and I believe 2 liters per minute. Blood pressure 138/74, pulse is 96, respirations are 14, BMI is 30.5 kg/m2. Rises from chair using the armrest. Diffuse tenderness across the low back, antalgic gait. Well-healed surgical scar compatible with history. Lower extremity strength is diminished, but symmetric. Straight leg raise is equivocal. Again, continues to smoke, down to half pack a day. Counseled regarding smoking cessation. ASSESSMENT: Neuropathic pain, status post lumbar decompressive laminectomy, status post cervical decompressive laminectomy, status post I believe thoracic decompression as well, ongoing axial back pain requiring complex medication management. RECOMMENDATION: Long discussion with the patient about therapeutic options. We elected to start Cymbalta. Her primary care physician is weaning her Risperdal. She is on multiple central acting psychiatric agents including trazodone at bedtime, Lamictal 300 mg daily, again weaning Risperdal, had been taking 3 mg 3 a day. She is down to b.i.d. with a target of 1 a day. ReQuip 0.5 mg b.i.d. with 3 at night and the aforementioned methadone, oxycodone, Lyrica, oxcarbazepine, baclofen 20 mg b.i.d. and clonidine at night. RECOMMENDATIONS: We will add Cymbalta 60 mg one a day to help with myofascial component of chronic pain and in 2 weeks, we will have the patient start Namenda 10 mg in the afternoon where she had dropped her midday methadone dose. I have taken the liberty of writing for 8 weeks of current medication. We will have her follow up in [address] Kumar. She may need to increase a little bit her opiate analgesic, perhaps opiate rotation to hydromorphone 4 mg t.i.d. for breakthrough pain (?). Medication changes as noted above accomplished. <ELECTRONICALLY SIGNED> By: Mike Fernandez DO 10/21/17 1135 1501 2119 Mike Fernandez DO /karri
[2017-10-19 13:12] VITALS: BP 138/74
== END ==
LOC: PAIN 08:40
DX: M54.5 Low back pain (principal); M79.2 Neuralgia and neuritis, unspecified; Z79.899 Other long term (current) drug therapy

== ENCOUNTER → 2017-11-21 | Outpatient (CLI) | payer OTHER ==
[~2017-11-21] VITALS: Ht 170.2 cm; Wt 92.5 kg
[2017-11-21 07:57] VITALS: BP 148/88
== END ==
LOC: PAIN 11-16 11:26
DX: M54.5 Low back pain (principal); M79.604 Pain in right leg; M79.605 Pain in left leg; F17.210 Nicotine dependence, cigarettes, uncomplicated; Z79.899 Other long term (current) drug therapy

== ENCOUNTER → 2017-11-28 | Outpatient (CLI) | payer OTHER ==
[~2017-11-28] VITALS: Ht 170.2 cm; Wt 91.6 kg
--- NOTE | ~2017-11-28 | HPC ---
[facility] [address] [place] [place] [address] PAIN MANAGEMENT CONSULTATION Name: SUNNY DENSON Room #: REG JAZZM[facility] HopsonMooseShaniqueMoose#: [id number] Admission: 11/28/17 Attend Phys: Ashley Kumar MD Discharge: Date of : 63 Report #: [id number] THIS REPORT FOR: //name// CC: JEREMY Kumar Physician staff DATE OF SERVICE: 11/28/2017 CHIEF COMPLAINT: Pain in the low back and down into the left leg. HISTORY OF PRESENT ILLNESS: The patient is a 52-year-old female who has been followed in the pain clinic by Dr. Mike Fernandez. The patient has a significant history of chronic pain problems. She has axial back pain. She is status post cervical, thoracic and lumbar decompression laminotomies. She has been treated with complex medical management. She also has had a history of SI joint pain. She returns today indicating that she continues to have pain and discomfort in the lower portion of her back. Pain is radiating down into the left leg. She rates her pain as a 6/10. The patient states that she has been treated using opioid medications and a number of other medications. She finds that her opioid medications are less effective. She states that she does have pulmonary problems. Her pulmonary doctors are urged her to decrease the use of opioid medications given the severity of her pulmonary status. She was given Namenda. She feels that this medication may have caused some problems with her other medications. She is not sure, but she has also decreased the amount of methadone she has been taking. She would like to proceed with an epidural steroid injection today. ALLERGIES: TEGRETOL. MEDICATIONS: Requip 0.5 mg a.m., 1.5 mg at night, Lyrica 100 mg 1 a.m., 2 at bedtime, oxcarbazepine 300 mg b.i.d., Baclofen 20 mg b.i.d., clonidine 0.1 mg b.i.d., methadone 10 mg, 2 tablets a.m., 1 at bedtime, oxycodone IR 10 mg 4 times daily, lactobacillus probiotic, Lipitor 20 mg, Combivent 14.7 mg, aspirin 81 mg, risperidone 3 mg b.i.d., ursodiol 600 mg b.i.d., bromocriptine 2.5 mg, Lamictal XR 300 mg, Claritin 10 mg; Mucinex 600 mg, total of 700 mg b.i.d.; Dexilant 30 mg capsules two tablets 60 mg b.i.d., Ventolin 2 puffs q. 4 hours p.r.n., metoclopramide 10 mg 4 times daily, trazodone 150 mg, takes 200 mg at bedtime, Flonase 0.4 mg, Singulair 10 mg, albuterol inhaler 4 times daily and cetirizine 10 mg daily. PAIN CLINIC ASSESSMENT: 1. History of osteoarthritis with osteoarthritic changes in the low back area with instrumentation. 2. Height 5 feet 7 inches, weight 202 pounds, BMI is 31.6. 3. Vital signs: Blood pressure 151/87, pulse at 99, respiratory rate 18, room [address] [address] PAIN MANAGEMENT CONSULTATION Name: SUNNY DENSON Room #: REG [facility] Eason#: [id number] Admission: 11/28/17 Attend Phys: Ashley Kumar MD Discharge: Date of : 63 Report #: [id number] air saturation 90%. 4. Pain intensity 09/16. 5. Fall risk. The patient has not fallen in the last 3 months. 6. Blood thinner. The patient is not on a blood thinning medication. 7. History of hypertension. The patient is being treated for hypertension. 8. Opioid greater than 6 weeks. The patient is on an opiate regimen and gets her medication from one source, the pain clinic. 9. Risk assessment tool, low risk 3/3 for the use of opioid medications. 10. Functional assessment tool . 11. Recreational drug use. The patient denies use of recreational drugs. 12. Tobacco: The patient continues to smoke cigarettes. 13. Alcohol: The patient denies frequent use of alcoholic beverages. The patient is on oxygen. PHYSICAL EXAMINATION: GENERAL: The patient is a well-developed, well-nourished white female. Appears her stated age, slightly obese. Speech is fluent. The patient smells of tobacco smoke. HEENT: Normocephalic, atraumatic. Extraocular eye muscles intact. Sclerae nonicteric. Mucous membranes are moist. NECK: Without JVD or adenopathy. HEART: Regular rate. LUNGS: Decreased lung sounds without rhonchi. ABDOMEN: Nontender. EXTREMITIES: Lower extremity, the patient has pain and discomfort in the lower portion of her back with pain that is radiating down the lateral portion of her left leg in the L4-L5 distribution. Has a well-healed scar in the midline area of her back. Decreased range of motion in the low back area. IMPRESSION: 1. Lumbar radiculopathy L5/4 distribution on the left. 2. History of instrumentation and cages in the low back area. 3. Chronic low back pain with instrumentation. 4. Dissociative identity disorder. 5. Stage 3 emphysema on 3-4 liters nasal cannula at all times. 6. Non-insulin dependent diabetes. 7. Fibromyalgia. 8. Neuropathy. 9. Gastroesophageal reflux disease. RECOMMENDATIONS: We discussed treatment options with the patient. Risks and benefits of an epidural steroid injection were discussed. The patient does have a significant amount of instrumentation in her lower back. We discussed use of a transforaminal approach. The patient elects to proceed. Risks and benefits of the procedure, which could include but are not limited to infection, increased muscle soreness, headache, bleeding, worsening of pain, no improvement [facility] [address] [place] [address] PAIN MANAGEMENT CONSULTATION Name: ZHANE DENSONGABRIELA ACOSTA Room #: REG [facility].#: [id number] Admission: 11/28/17 Attend Phys: Ashley Kumar MD Discharge: Date of : 63 Report #: [id number] in pain, nerve irritation. The patient elects to proceed. PROCEDURE NOTE: The patient was taken to the examination area. She was assisted in getting on the examination table. Her back was sterilely prepped with a Betadine solution. Fluoroscopy using anterior, posterior as well as lateral visualization were used performing a transforaminal epidural steroid injection at the left L4-L5 interspace. The back had been sterilely prepped. A 22-gauge Chiba needle was used to place the medication in the left paraspinal area. The area was infiltrated with 0.25% bupivacaine. Total of 80 mg of Depo-Medrol, 20 mg of triamcinolone was injected. The patient tolerated the procedure well. There were no complications. She rated her pain as 4-5 at the time of discharge. A total of 17 seconds fluoroscopy time was used. The patient was discharged home with her . She will follow up in the future as needed. We have discussed the problems with opioid medications. The limitation is that the long-term use of opioid medications can be helpful initially, but one can note a decrease in efficacy as time goes on secondary to intolerance. The patient states that her pulmonary doctors would like for her to decrease the amount of opioids. She has done this by decreasing some of methadone she was taking. Dr. Fernandez had supervised this reduction. The patient will follow up in the near future. We would like to thank you for letting us participate in her care. We hope she continues to improve. By: 1626 [id number] Ashley Kumar MD /ALANIS
[2017-11-28 13:00] VITALS: BP 151/87
== END | disposition home or self-care (01) ==
LOC: PAIN 07:56
DX: M54.16 Radiculopathy, lumbar region (principal); G89.29 Other chronic pain; E11.9 Type 2 diabetes mellitus without complications; J43.8 Other emphysema; M79.7 Fibromyalgia; G62.9 Polyneuropathy, unspecified; K21.9 Gastro-esophageal reflux disease without esophagitis; F44.81 Dissociative identity disorder; Z98.890 Other specified postprocedural states; Z79.899 Other long term (current) drug therapy; Z88.8 Allergy status to other drugs, medicaments and biological substances; Z79.891 Long term (current) use of opiate analgesic; Z79.82 Long term (current) use of aspirin

== ENCOUNTER → 2018-01-18 | Outpatient (CLI) | payer OTHER ==
[~2018-01-18] VITALS: Ht 170.2 cm; Wt 88.1 kg
[~2018-01-18] MED LIST changes: -ACCUNEB0.63 MG/3 IH; +ALBUTEROL2.5 MG/31 INH; +ESTROVEN MAX400 MCG PO; -LAMICTAL XR300 MG PO; +LIORESAL 10 MG10 MG PO; +RANITIDINE HCL300 MG PO; +TRAZODONE HCL100 MG PO; +VICTOZA0.6 MG/0.1 SUBQ; +XYZAL5 MG PO; +[UNRECOGNIZED DRUG - OTHER] PO; +[UNRECOGNIZED DRUG - OTHER] PO
--- NOTE | ~2018-01-18 | HPC ---
[facility] [address] [place] [address] PAIN MANAGEMENT CONSULTATION Name: SUNNY DENSON Room #: REG [facility]..#: [id number] Admission: 01/18/18 Attend Phys: Sandi Serrano Discharge: Date of : 63 Report #: [id number] THIS REPORT FOR: //name// CC: Sandi Kumar MD Physician staff DATE OF SERVICE: 01/18/2018 CHIEF COMPLAINT: Pain in her low back that radiates into her left leg. HISTORY OF PRESENT ILLNESS: This is a 52-year-old pleasant female who has been followed in the Pain Clinic by Dr. Mike Fernandez and then Dr. Zay Kumar. She has significant history of chronic pain problems. She has axial back pain and post-cervical thoracic, lumbar decompression laminectomies. She has been treated with complex medical management. She also has a history of SI joint pain. She returns today for medical management, refill of her current medications. She states that her last injection was a left transforaminal, gave her 60% relief and was able to function better. She states today that she has weaned herself down from methadone 3 times a day to twice a day and is still been able to function appropriately. She states her pain is 6/10 in her lower back and her legs. She states that the wet weather, walking and sitting has made her pain worse. She also tells me that her [id number] is on hospice and she has been caring for him at home until she was unable to do so and he is in respite care and expected to pass away soon. She has been spending lots of time with him and she has still been able to wean her methadone, which I told her that she had done an amazing job doing that considering her circumstances at present time. ALLERGIES: TEGRETOL. CURRENT MEDICATION LIST: Risperidone 2 mg twice a day, Fosamax once a day, lamotrigine 150 two tablets in the morning, Mucinex 600 mg twice a day, Lyrica 100 mg 1 in the morning and 2 at night, oxcarbazepine 300 mg twice a day, ReQuip 1 in the morning and 3 at night of 0.5 mg, Dexilant 60 mg twice a day, Reglan 10 mg every 6 hours, Zantac 300 mg at bedtime, baclofen 200 mg twice a day, levocetirizine 5 mg once a day, Singulair 10 mg once at night, methadone 10 mg once in the morning and once at night, oxycodone 10 mg up to 4 times a day, trazodone 100 mg once a day, Ventolin inhalers twice a day 2 puffs 4 times a day as needed, albuterol as needed, Symbicort 2 puffs twice a day, Combivent 2 puffs 4-6 times a day, Estroven 1 daily maximum strength, Ursodiol 300 two capsules twice a day, atorvastatin 20 mg 1 in the evening, probiotic twice a day, and Victoza 0.5 once a day. [address] [address] PAIN MANAGEMENT CONSULTATION Name: SUNNY DENSON Room #: REG CLKassandra Eason#: [id number] Admission: 01/18/18 Attend Phys: Sandi Serrano Discharge: Date of : 63 Report #: [id number] PQRS: Today, history of osteoarthritis in her back and her legs. No rheumatoid arthritis. Height is 5 feet 7 inches, weight 194, BMI is 30.4. Vital signs: BP 114/88, pulse 108, respirations 20, oxygen 97%. Pain score today is 6/10. Fall risk: Dizzy. She has some dizziness, but does not need help in standing or walking and she is not a fall risk. The patient is on blood thinners, none. History of hypertension, yes. Opioid therapy greater than 6 months and opioid contract has been signed. Risk assessment tool is low. Functional assessment . No recreational drug use. She does continue to smoke cigarettes 2 packs a day. No alcohol use. We have checked [place] Pdmp and K-TRACS, and they are appropriate for the patient with current prescribers. PHYSICAL EXAMINATION: GENERAL: The patient is well-developed, well-nourished white female, appears to be her stated age, slightly obese. The patient smells of tobacco use. HEENT: Normocephalic, atraumatic. Extraocular eye motor intact. Mucous membranes intact. NECK: Without JVD or adenopathy. HEART: Regular rate. LUNGS: Decreased with oxygen use on. EXTREMITIES: Lower extremity pain radiating down her back into her left lateral portion of her left leg. Well defined scar midline of her back. She does have decreased range of motion in her lower back. The muscle strength is equal and strong in her legs. IMPRESSION: 1. Lumbar radiculopathy. 2. History of instrumentation and cage in lower back area. 3. Chronic low back pain. 4. Dissociative identity disorder. 5. Stage 3 emphysema, on 3-4 liters nasal cannula at all times. 6. Non-insulin dependent diabetic. 7. Fibromyalgia. 8. Neuropathy. 9. Gastric reflux disease. RECOMMENDATION: A great deal of time was spent today talking about her pain use. Her pulmonary doctor and her primary care doctor as well as our clinic are trying to decrease her opioid use according to the CDC guidelines of being 90 MMEs or below. The patient is currently above that and we are working hard as well as the patient to decrease these amount. She states that she has decreased methadone from 3 times a day to twice a day. So, we will write for methadone 10 mg b.i.d. for one month and #60 was provided. The second month, the patient will continue at 2 pills a day. In the third month in March, we will decrease her to 1 pill a day. The patient was given 2 prescriptions at this time. The patient will continue on her oxycodone up to 4 times a day 10 mg tablets, 2 prescriptions were given for that. The patient was given [address] [address] PAIN MANAGEMENT CONSULTATION Name: SUNNY DENSON Room #: REG CLKassandra Ivy.#: [id number] Admission: 01/18/18 Attend Phys: Sandi Serrano Discharge: Date of : 63 Report #: [id number] prescription for Lyrica 100 mg, 1 in the morning, 2 at night, #90 with 1 refill. ReQuip 0.5, 1 in the morning, 3 at night, 120 with 1 additional refill. Oxcarbazepine 300 mg, 1 pill twice a day, #60 with 1 refill. Baclofen 20 mg twice a day, quantity 60 with 1 additional refill. The patient denies any side effects with her medications and states that she is feeling better and able to breathe better since decreasing her methadone. So, we will continue to decrease these 2 months at 2 times a day. Follow up will be in March. The patient is agreeable with this plan of care. The patient was seen in collaboration with Dr. Zay Kumar. <ELECTRONICALLY SIGNED> By: Sandi Serrano 01/21/18 0724 0938 0103 Sandi Serrano /nt
[2018-01-18 08:27] VITALS: BP 114/88
== END ==
LOC: PAIN 07:02
DX: M54.16 Radiculopathy, lumbar region (principal); M79.7 Fibromyalgia; K21.9 Gastro-esophageal reflux disease without esophagitis; E11.42 Type 2 diabetes mellitus with diabetic polyneuropathy; J43.9 Emphysema, unspecified; F44.81 Dissociative identity disorder; Z79.899 Other long term (current) drug therapy

== ENCOUNTER → 2018-03-21 | Outpatient (CLI) | payer OTHER ==
[~2018-03-21] VITALS: Ht 170.2 cm; Wt 84.9 kg
[~2018-03-21] MED LIST changes: +ANORO ELLIPTA1 EACH INH; +AZITHROMYCIN 2250 MG PO; -TRAZODONE HCL100 MG PO; +ZOLOFT50 MG PO
--- NOTE | ~2018-03-21 | HPC ---
[facility] [place] [address] PAIN MANAGEMENT CONSULTATION Name: SUNNY DENSON [id number] Admission: 03/21/18 Attend Phys: Sandi Serrano Discharge: Date of : 63 Report #: [id number] THIS REPORT FOR: //name// CC: Sandi QUESADA Physician staff DATE OF SERVICE: 03/21/2018 CHIEF COMPLAINT: Here for her low back pain that radiates into her left leg, left leg weakness and recent falls. HISTORY OF PRESENT ILLNESS: This is a pleasant 52-year-old female who has been followed in the pain clinic for several years for her longstanding chronic pain problems. She today complaints of significant weakness in her left leg, tells me that she has fallen 4 times since her last visit in January. She did fracture some ribs, hurt her knee and has had several bruises from these falls. The patient tells me that her left leg feels jumpy, jittery and her leg just gives out and she has fallen each time she has gone to seek medical attention from her primary care doctor. The patient tells me that she needs help in figuring out what is causing all of her pain increase and her falls. The patient tells me also today that she has weaned off her methadone. We were gradually going to have been doing this over the past few months and we are going to have her last month after the script but the patient tells me that she stopped it about 3 weeks ago, does not feel that has contributed to her added nerve issues in her leg, though methadone does help with MDA receptors and helps with nerve pain. The patient just tells me that her leg feels weak. She would like refills of her medication today and help in figuring out her leg issues. ALLERGIES: TEGRETOL. CURRENT LIST OF MEDICATIONS: Oxycodone 10 mg up to 4 times a day; Lyrica 100 mg, 1 in the morning and 2 at night; Requip 0.5, 1 in the morning, 3 at night; baclofen 20 mg twice a day; oxcarbazepine 150 mg 3 tablets twice a day. The rest of her medications were reconciled and please see the list per medical records. PQRS: 1. She has a history of osteoarthritis in her back and her legs. Denies rheumatoid arthritis. 2. Height is 5 feet 7 inches, weight is 187. BMI is 29.3. 3. Vital signs: Blood pressure 132/90, pulse is 82, respirations 16, oxygen sat is 98%. 4. Pain score is 8/10. 5. Fall risk. Denies dizziness, is not using a cane or walker at this time, [address] [address] PAIN MANAGEMENT CONSULTATION Name: DENSONSUNNY DAVE Room #: REG CLKassandra Eason#: [id number] Admission: 03/21/18 Attend Phys: Sandi Serrano Discharge: Date of : 63 Report #: [id number] but encouraged and has fallen multiple times in the last 3 months. 6. Denies blood thinners and does take antihypertensive medicines. 7. Opioid therapy is greater than 6 weeks, therefore, an opioid signed contract is on the chart. 8. Risk assessment tool is low. Her functional assessment is . 9. Recreational drug use. She denies. She is a current smoker, is trying to decrease her smoking, but she continues about a pack and a half a day. No alcohol use. We did check the prescription monitoring systems for [place], [place]. The patient did have one fill of MS Contin. The patient informed us that, that was from an Emergency Room doctor after she had fallen and gave her 3 days of medicines. Otherwise, all of her medicines are appropriate from our doctors or her psychiatrist. There is a recent drug screen also in the chart. PHYSICAL EXAMINATION: GENERAL: The patient is a well-developed, well-nourished white female who appears her stated age. The patient smells of tobacco use today. She is alert and orientated and her affect is appropriate. HEENT: Normocephalic, atraumatic. Extraocular eye muscles are intact. Mucous membranes are moist. NECK: Without JVD or adenopathy. LUNGS: Diminished, oxygen not in use today and oxygen sat is at 98%. EXTREMITIES: Lower extremity pain radiating from her back into her left leg to her outer portion of her leg to her toes. The patient tells me that it is a electrical shocky feeling of pins and needles, rating the pain score of 8/10. Muscle strength in her right leg judged to be 5/5, in her left leg judged to be 4/5 in all major muscle groups in her left lower extremity. The patient does rise from sitting to standing without difficulty and walks with an antalgic gait. No foot drop noted or dragging of her left foot. IMPRESSION: 1. Lumbar radiculopathy. 2. History of instrumentation and cage in her lower lumbar area. 3. Chronic low back pain. 4. Dissociative identity disorder. 5. Stage 3 emphysema, does wear oxygen 3-4 liters nasal cannula. 6. Noninsulin dependent diabetic. 7. Fibromyalgia. 8. Neuropathy. 9. Gastric reflux disease. We reviewed the fact that opiate medications are being used to provide analgesia adequate to support activities of daily living, not attempting to achieve a specific pain score on the 0-10 Visual Analog Scale. The current opiate medications are providing sufficient analgesia to allow the patient to participate in activities of daily living. The patient is not exhibiting any aberrant behavior suggestive of drug diversion. The patient is not having any [facility] [address] [place] [address] PAIN MANAGEMENT CONSULTATION Name: SUNNY DENSON Room #: REG JAZZMINE Eason#: [id number] Admission: 03/21/18 Attend Phys: Sandi Serrano Discharge: Date of : 63 Report #: [id number] adverse reactions to medications. The patient is not suffering from daytime somnolence or mental acuity changes. The patient is managing opiate-induced constipation with appropriate [id number]-ulewbri agents and dietary considerations. The patient was counseled on concern for caution with operating a motor vehicle while using opiate medications. A physical exam was performed and the patient's functional status was evaluated. All patients with back pain were advised against the bed rest greater than 4 days and were advised to return to normal activities. Pain score assessment was noted and the treatment plan was reviewed with the patient. All current medications, both prescribed and OTC were reviewed and reconciled on the electronic medical record. Tobacco screening was accomplished and smoking cessation was advised when indicated. BMI was noted and diet/exercise modification was recommended for all patients following outside normal parameters. I reviewed with the patient today their responsibilities to safeguard prescription medications, reviewed their responsibility to utilize medications only as prescribed by the physician. They are to seek and receive pain medications only from 1 physician group ( [facility]). They are to use 1 pharmacy and keep the clinic informed if they change pharmacies. Their responsibilities include making followup visits in a timely fashion and to avoid abrupt discontinuation of medication usage. Their responsibilities further include bringing their medications (bottles from the pharmacy with residual pills) to the visit for possible confirmation of pill counts and the patient understands it is their responsibility to submit to random drug screens to ensure both that the medications prescribed are present, and that no other controlled substances are present. All prescriptions provided today were generated electronically. PLAN: 1. Treatment options were discussed today with the patient. The patient has decreased her methadone use and has been off it for 3 weeks. Continue to take her oxycodone 10 mg up to 4 times a day. The patient tells me that this has been controlling her pain, though her pain score is 8/10 today. She denies constipation or daytime somnolence. 2. The patient tells me that her psychologist has taken over her oxcarbazepine and has increased her dose to 450 mg, so he will write for this from now on. 3. Script given for baclofen 20 mg twice a day, quantity 60 with one additional refill. Second medication, Requip 0.5 twice a day, 1 in the morning and 3 at night, quantity 120 with one additional refill and Lyrica 100 mg 1 in the morning and 2 at night, quantity 90 with one additional refill. 4. A great deal of time was spent examining the patient and discussing treatment options for her low back and left leg weakness and pain. The patient tells me she has fallen 4 times in the past 2 months. One option is to order an MRI and have her follow up with Dr. Fox. 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 Based on this information, I think that we will not order an MRI at this time because we cannot follow through with any treatment options regarding surgery if something was there due to her pulmonary status. Second option, repeat her left transforaminal epidural. The patient tells me that she had some beneficial relief from this in November when her last injection was, which was 4 months ago. I think that this is a good option for the patient due to her respiratory status and her history of pain control and relief from the epidurals in the past. The patient is agreeable with this plan of care and we will schedule appointment with Dr. Kumar on next Sunday for a left transforaminal injection. 5. The patient and I discussed physical therapy options and using a cane for safety purposes. The patient tells me she has done physical therapy in the past and Dr. Fox, her neurosurgeon is very leery of having her do too much exercising with her cages in her back. I encouraged her to call Dr. Fox's office and see what he would recommend as far as physical therapy. The patient will be doing this as well as starting using her cane again to help prevent falls. 6. We discussed going back on her methadone and decreasing her oxycodone. Methadone does help with nerve pain as well as generalized pain and it may be that since this nerve pain has increased since she has stopped her methadone, that she would see more benefit than she sought from that. We are understanding that she needs to decrease her opioid use, but we could decrease her oxycodone 10 mg to twice a day and restart methadone at 5 mg twice a day, then she would have benefit of still having opioids and help decrease her pain, but also help with her nerve pain through the methadone. The patient is agreeable to discuss this in the future if the injection is not helpful in quieting her down. 7. The patient will follow up on Sunday for her epidural. Care given today with collaboration with Dr. Fleming on discussing this case. <ELECTRONICALLY SIGNED> By: Sandi Serrano 03/22/18 0744 [id number] Sandi Serrano /nt
[2018-03-21 10:55] VITALS: BP 132/90
== END ==
LOC: PAIN 09:10
DX: M54.16 Radiculopathy, lumbar region (principal); J43.8 Other emphysema; E11.40 Type 2 diabetes mellitus with diabetic neuropathy, unspecified; M19.90 Unspecified osteoarthritis, unspecified site; Z88.8 Allergy status to other drugs, medicaments and biological substances; Z79.899 Other long term (current) drug therapy

== ENCOUNTER → 2018-03-27 | Outpatient (CLI) | payer OTHER ==
[~2018-03-27] VITALS: Ht 170.2 cm; Wt 86.1 kg
[~2018-03-27] MED LIST changes: +RISPERDAL 1 MG T1 MG PO
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
[2018-03-27 09:54] VITALS: BP 123/71
== END | disposition home or self-care (01) ==
LOC: PAIN 09:35
DX: M54.16 Radiculopathy, lumbar region (principal); G89.29 Other chronic pain; I10 Essential (primary) hypertension; E11.9 Type 2 diabetes mellitus without complications; J44.9 Chronic obstructive pulmonary disease, unspecified; M79.7 Fibromyalgia; K21.9 Gastro-esophageal reflux disease without esophagitis; F17.210 Nicotine dependence, cigarettes, uncomplicated; F44.81 Dissociative identity disorder; G62.9 Polyneuropathy, unspecified; M19.90 Unspecified osteoarthritis, unspecified site; Z88.8 Allergy status to other drugs, medicaments and biological substances; Z79.899 Other long term (current) drug therapy; Z98.890 Other specified postprocedural states

== ENCOUNTER → 2018-05-15 | Outpatient (CLI) | payer OTHER ==
[~2018-05-15] VITALS: Ht 170.2 cm; Wt 89.4 kg
[~2018-05-15] MED LIST changes: +QUETIAPINE FUM100 MG PO
[2018-05-15 12:37] VITALS: BP 134/90
--- NOTE | 2018-05-15 12:52 | NUR ---
Pain Clinic Assessment: 1. History of Osteoarthritis: Not Applicable History of Rheumatoid Arthritis: Not Applicable 2. Height: 5 ft. 7 in. 170.2 cm. Weight: 197.2 lb. oz. 89.449 kg. Patient's BMI: 30.9 3. Vital Signs: BP: 134/90 Pulse: 81 Resp: 14 Temp: 02 Sat: 98 ECG Mon: 4. Pain Intensity: 6 5. Fall Risk: Dizziness: N Needs help standing or walking: Y Fallen in the last 3 months: Y Fall risk comments: 6. Patient on Blood Thinner: None 7. History of Hypertension: Y 8. Opioid Therapy greater than 6 weeks: Y Opiate Contract Signed: 12/03/15 9. Risk Assessment Tool Provided: LOW RISK 06/09 10. Functional Assessment Tool: 11. Recreational Drug Use: Never Drug Type: Tobacco Use: Current Every Day Smoker Tobacco Type: Amount or Packs/day: How Many Years: Alcohol Use: No Frequency: Quant:
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
== END ==
LOC: PAIN 07:15
DX: M54.16 Radiculopathy, lumbar region (principal); M79.7 Fibromyalgia; G62.9 Polyneuropathy, unspecified; E11.9 Type 2 diabetes mellitus without complications; J43.9 Emphysema, unspecified; K21.9 Gastro-esophageal reflux disease without esophagitis; F44.81 Dissociative identity disorder; Z79.899 Other long term (current) drug therapy

== ENCOUNTER → 2018-07-19 | Outpatient (CLI) | payer OTHER ==
[~2018-07-19] VITALS: Ht 170.2 cm; Wt 90.4 kg
[~2018-07-19] MED LIST changes: +LEVOFLOXACIN750 MG PO; +SEROQUEL 50 MG50 MG PO
[2018-07-19 08:23] VITALS: BP 143/80
--- NOTE | 2018-07-19 08:24 | NUR ---
Pain Clinic Assessment: 1. History of Osteoarthritis: Not Applicable History of Rheumatoid Arthritis: Not Applicable 2. Height: 5 ft. 7 in. 170.2 cm. Weight: 199.2 lb. oz. 90.357 kg. Patient's BMI: 31.2 3. Vital Signs: BP: 143/80 Pulse: 92 Resp: 18 Temp: 02 Sat: 92 ECG Mon: 4. Pain Intensity: 8 5. Fall Risk: Dizziness: N Needs help standing or walking: N Fallen in the last 3 months: Y Fall risk comments: NON INJURY FALL 6. Patient on Blood Thinner: None 7. History of Hypertension: Y 8. Opioid Therapy greater than 6 weeks: Y Opiate Contract Signed: 12/03/15 9. Risk Assessment Tool Provided: LOW RISK 06/09 10. Functional Assessment Tool: 11. Recreational Drug Use: Never Drug Type: Tobacco Use: Current Every Day Smoker Tobacco Type: Amount or Packs/day: How Many Years: Alcohol Use: No Frequency: Quant:
--- NOTE | 2018-07-22 07:20 | HPC ---
[facility] [place] [address] [place] [address] PAIN MANAGEMENT CONSULTATION Name: SUNNY DENSON Room #: REG [facility].#: [id number] Admission: 07/19/18 ������������������ Attend Phys: Ashley Kumar MD Discharge: ������������������ Date of : 63 Report #: [id number] THIS REPORT FOR: //name// CC: JEREMY Kumar Physician staff DATE OF SERVICE: 07/19/2018 CHIEF COMPLAINT: Low back pain with lumbar radiculopathy. HISTORY OF PRESENT ILLNESS: This is a very pleasant 53-year-old female who returns to the pain clinic today for refill of her medications that she takes for her ongoing low back pain that radiates into her leg. She tells me that her pain is 8/10 today, which is an average pain score for her. She had tested positive for influenza A in June, was slowly getting better, went back to the doctor and now has pneumonia in her right lower lobe, but she tells me that she is on antibiotics. She has been off work since 07/02/2018, which she recently has started at the [employer]. She tells me that she loves working, loves being there, but unfortunately, she thinks also working there is what caused her to get sick. She says she is looking forward to getting to go back in two weeks to work. She denies any problems with constipation. She takes a probiotic daily. She tells me that she is taking Nicorette gum, but still smoking about half a pack a day. Her pain is worse in her lower back, legs and tailbone. It is worse with walking and sitting, but her medications, her TENS unit are very helpful. ALLERGIES: TEGRETOL. MEDICATIONS: Seroquel 100 mg at bedtime, Seroquel 50 mg b.i.d., Requip, Lyrica, OxyIR 10 mg q.i.d., Anoro Ellipta daily, Combivent daily, Zoloft, Zantac, Victoza, probiotic, Super Collagen, Estroven, Xyzal, oxcarbazepine 150 mg 3 tablets b.i.d., baclofen, Lipitor, Actigall, Lamictal, Mucinex, Dexilant, Reglan, trazodone, Flomax and albuterol. PQRS: 1. She has a history of osteoarthritis in her back and her legs. Denies any rheumatoid arthritis. 2. Height is 5 feet 7 inches, weight is 199. BMI is 31. 3. Vital signs: Blood pressure 143/80, pulse is 92, respirations 18, oxygen sat is 92. 4. Pain score is 8/10. 5. Fall risk: Denies dizziness. Does not need help walking, standing. Has fallen in the last 3 months, but did not injure herself or seek medical care. 6. The patient is not on any blood thinners. She does take medicine for hypertension. [address] [address] PAIN MANAGEMENT CONSULTATION Name: SUNNY DENSON Room #: REG [facility]ason#: [id number] Admission: 07/19/18 ������������������ Attend Phys: Ashley Kumar MD Discharge: ������������������ Date of : 63 Report #: [id number] 7. Opiate therapy is greater than 6 weeks; therefore, an opiate signed contract is on the chart. Her risk assessment is low. Her functional assessment is 17/70. 8. Recreational drug use: She denies. She currently smokes a half a pack of cigarettes a day and her alcohol use is none. 9. We did check the prescription monitoring system, the patient is filling appropriately from Dr. Zay Kumar and we will obtain a random drug screen on this patient today. PHYSICAL EXAMINATION: GENERAL: This is a well-developed, well-nourished, white female who appears her stated age. She is alert and orientated. She is wearing oxygen through a nasal cannula. HEENT: Normocephalic, atraumatic. Extraocular eye muscles are intact. Mucous membranes are moist. LUNGS: Diminished. Again, wearing oxygen at 3 liters nasal cannula. EXTREMITIES: Lower extremity pain in bilateral lateral legs that radiates to her feet. Muscles strength in her lower extremities judged to be 4/5 bilaterally in all major muscle groups. She does walk with an antalgic gait and does use a walker at all times. Her upper extremity strength judged to be 5/5 bilaterally in all muscle tones. ASSESSMENT: 1. Lumbar radiculopathy. 2. Instrumentation with cage in her lumbar region. 3. Chronic low back pain. 4. Dissociative identity disorder. 5. Stage 3 emphysema requiring supplemental oxygen. 6. Diabetic. 7. Fibromyalgia. 8. Neuropathy. 9. Gastroesophageal reflux disease. 10. Pneumonia. We reviewed the fact that opiate medications are being used to provide analgesia adequate to support activities of daily living, not attempting to achieve a specific pain score on the 0-10 Visual Analog Scale. The current opiate medications are providing sufficient analgesia to allow the patient to participate in activities of daily living. The patient is not exhibiting any aberrant behavior suggestive of drug diversion. The patient is not having any adverse reactions to medications. The patient is not suffering from daytime somnolence or mental acuity changes. The patient is managing opiate-induced constipation with appropriate hvdg-zko-kqzcyuo agents and dietary considerations. The patient was counseled on concern for caution with operating a motor vehicle while using opiate medications. [facility] [address] [place] [address] PAIN MANAGEMENT CONSULTATION Name: SUNNY DENSON Room #: REG [facility].#: [id number] Admission: 07/19/18 ������������������ Attend Phys: Ashley Kumar MD Discharge: ������������������ Date of : 63 Report #: [id number] A physical exam was performed and the patient's functional status was evaluated. All patients with back pain were advised against the bed rest greater than 4 days and were advised to return to normal activities. Pain score assessment was noted and the treatment plan was reviewed with the patient. All current medications, both prescribed and OTC were reviewed and reconciled on the electronic medical record. Tobacco screening was accomplished and smoking cessation was advised when indicated. BMI was noted and diet/exercise modification was recommended for all patients following outside normal parameters. I reviewed with the patient today their responsibilities to safeguard prescription medications, reviewed their responsibility to utilize medications only as prescribed by the physician. They are to seek and receive pain medications only from 1 physician group ( [facility]). They are to use 1 pharmacy and keep the clinic informed if they change pharmacies. Their responsibilities include making followup visits in a timely fashion and to avoid abrupt discontinuation of medication usage. Their responsibilities further include bringing their medications (bottles from the pharmacy with residual pills) to the visit for possible confirmation of pill counts and the patient understands it is their responsibility to submit to random drug screens to ensure both that the medications prescribed are present, and that no other controlled substances are present. All prescriptions provided today were generated electronically. PLAN: 1. We discussed treatment options with the patient today. The patient tells me she is doing well on her current medications, would like refills. Script was given for Requip 0.5 mg one in the morning, 3 at night, #120 with one additional refill; OxyIR 10 mg, #120 for today and 4-week release; Lyrica 100 mg tablets one in the morning, two at night, #90 with one additional refill and baclofen 20 mg b.i.d., #60 with one additional refill. 2. We did talk about smoking cessation again. She said that she is trying to decrease. She is still smoking about half a pack a day and using Nicorette gum. She tells me that her is trying to quit also. She tells me that he smoke outside on the porch. He is having some health issues that are requiring him to stop smoking. She said as soon as he is ready, I will quit cold turkey. I encouraged her to try to decrease by a fourth of a pack this next month and then off the following month and she not smoke inside the home with the use of oxygen. 3. The patient will return for a followup visit in 2 months' time. The patient was seen by Dr. Kumar today who collaborated care. ��������������������������������������������� <ELECTRONICALLY SIGNED> ���������������������������������������� By: Sandi Serrano ��������������������������������������������� 07/22/18 0720 [id number] Sandi Serrano /karri
== END ==
LOC: PAIN 06:43
DX: M54.16 Radiculopathy, lumbar region (principal); G89.29 Other chronic pain; J43.9 Emphysema, unspecified; E11.9 Type 2 diabetes mellitus without complications; M79.7 Fibromyalgia; K21.9 Gastro-esophageal reflux disease without esophagitis; J18.9 Pneumonia, unspecified organism; G62.9 Polyneuropathy, unspecified; F44.81 Dissociative identity disorder; Z79.899 Other long term (current) drug therapy

== ENCOUNTER → 2018-09-13 | Outpatient (CLI) | payer OTHER ==
[~2018-09-13] VITALS: Ht 170.2 cm; Wt 88.0 kg
[~2018-09-13] MED LIST changes: +EVENING PRIMRO1 EACH PO; +LISINOPRIL10 MG PO; +NORVASC5 MG PO; +QUETIAPINE FUM200 MG PO; +SERTRALINE HCL100 MG PO
--- NOTE | ~2018-09-13 | HPC ---
[facility] [address] [place] [address] PAIN MANAGEMENT CONSULTATION Name: SUNNY TANG Room #: REG [facility] Biju.#: [id number] Admission: 09/13/18 ������������������ Attend Phys: Ashley Kumar MD Discharge: ������������������ Date of : 63 Report #: [id number] THIS REPORT FOR: //name// CC: JEREMY Kumar Physician staff DATE OF SERVICE: 09/13/2018 The patient was recently . Her previous name was Sunny Chapa. FOLLOWUP COMPLAINT: I have recently got . HISTORY: The patient is a 53-year-old female who has been followed in the Pain Clinic. As you recall, she suffers from chronic pain. She has pain in the low back area with pain radiating down into her legs and tailbone. She also notes that the pain is worse with walking, sitting and with damp weather. Feels that lying down and use of TENS unit is helpful. She has returned today for renewal of her medication. She rates her pain as a 6/10. Notes that there is some pain in the tailbone area. Notes some weakness down into her right leg. She did fall about 2 weeks ago. States that she has lost her balance. She did not go to the Emergency Room. ALLERGIES: TEGRETOL. CURRENT MEDICATIONS: Seroquel 100 mg at bedtime, Seroquel 50 mg b.i.d., Requip, Lyrica, OxyIR 10 mg q.i.d., Anoro Ellipta daily, Combivent daily, Zoloft, Zanaflex, Victoza, probiotic, super collagen, estrogen, Xyzal, oxcarbazepine 150 mg 3 tablets b.i.d., baclofen, Lipitor, Actigall, Lamictal, Mucinex, Dexilant, Reglan, trazodone, Flomax, albuterol. PAIN CLINIC ASSESSMENT/PQRS: 1. The patient has osteoarthritis in her back and legs. Denies rheumatoid arthritis. 2. Height 5 feet 7 inches, weight 192 pounds, BMI is 30. 3. Vital Signs: Blood pressure 140/80, pulse 86, respiratory rate 16, room air saturation 94%. 4. Pain intensity, 09/16. 5. Fall history: The patient fell 2 weeks ago, did not require medical assistance. States that she just simply lost her balance and fell backwards, notes some decreased strength in her left leg. 6. Blood thinner. The patient is not on a blood thinning medication. 7. Hypertension. The patient is being treated for hypertension. 8. Opioids greater than 6 weeks. The patient received her medication from one source the Pain Clinic. 9. Risk assessment tool, moderate risk 07/17. [place] [address] PAIN MANAGEMENT CONSULTATION Name: SUNNY TANG Room #: REG [facility] Jenaro#: [id number] Admission: 09/13/18 ������������������ Attend Phys: Ashley Kumar MD Discharge: ������������������ Date of : 63 Report #: [id number] 10. Functional assessment tool, . 11. Recreational drug use. The patient denies. 12. Tobacco. The patient smokes one-half pack of cigarettes per day and smoked for 45 years. 13. Alcohol: The patient denies frequent use of alcoholic beverages. PHYSICAL EXAMINATION: GENERAL: The patient is a well-developed, well-nourished white female. Appears her stated age. She is alert and oriented. She is wearing oxygen through nasal cannula. The room smells of tobacco. HEENT: Normocephalic, atraumatic. Extraocular eye muscles intact. Mucous membranes are moist. LUNGS: Diminished breath sounds. The patient is wearing oxygen about 3 liters via nasal cannula per minute. EXTREMITIES: Upper extremity strength is judged to be 4/5 bilaterally. The patient walks with an antalgic gait. Does use a walker at all times. Upper extremity strength is judged to be 5-/5. ASSESSMENT: 1. Lumbar radiculopathy. 2. Oxygen dependency, using oxygen. The patient smells of tobacco. 4. Instrumentation with cages in her lumbar region. 5. Chronic low back pain. 6. Dissociative identity disorder. 7. Stage 3 emphysema, requiring supplemental oxygen. 8. Diabetes. 9. Fibromyalgia. 10. Neuropathy. 11. Gastroesophageal reflux disease. 12. Pneumonia. RECOMMENDATIONS: We discussed treatment options with the patient. At this juncture, we will continue with her medications. She feels that the medications are helpful. Does not have any problems with the medications, feels that they are beneficial. She states that she is using oxygen. We have again spoke with the patient regarding the possible complications of using oxygen and smoking. We explained that that can be a very deadly combination. We explained to the patient, other patients who have worked with untoward outcomes. We will also continue with the patient's oxycodone 10 mg 1 p.o. q.i.d. She will continue with Lyrica 100 mg b.i.d. The patient will also continue with her baclofen to help with muscle spasm 60 mg b.i.d. She is taking 20 mg tablets, Requip 0.5 mg one p.o. b.i.d. The patient feels that her medications are helpful. We would like to continue with their use. We discussed the problems with opioid medications. One can develop tolerance with prolonged use as well as development of an addiction long-term. The patient does not feel she is addicted. Feels the medication is helpful and enables her to stay more active. [facility] [address] [place] [address] PAIN MANAGEMENT CONSULTATION Name: SUNNY TANG Room #: REG [facility].#: [id number] Admission: 09/13/18 ������������������ Attend Phys: Ashley Kumar MD Discharge: ������������������ Date of : 63 Report #: [id number] A script for her medications has been released. We will continue to help monitor the patient with her complex medication management. ��������������������������������������������� ���������������������������������������� By: ��������������������������������������������� [id number] [id number] Ashley Kumar MD /nt
[2018-09-13 08:14] VITALS: BP 140/80
--- NOTE | 2018-09-13 08:21 | NUR ---
Pain Clinic Assessment: 1. History of Osteoarthritis: Not Applicable History of Rheumatoid Arthritis: Not Applicable 2. Height: 5 ft. 7 in. 170.2 cm. Weight: 194.0 lb. oz. 87.998 kg. Patient's BMI: 30.4 3. Vital Signs: BP: 140/80 Pulse: 86 Resp: 16 Temp: 02 Sat: 94 ECG Mon: 4. Pain Intensity: 6 5. Fall Risk: Dizziness: N Needs help standing or walking: N Fallen in the last 3 months: Y Fall risk comments: NON INJURY FALL 6. Patient on Blood Thinner: None 7. History of Hypertension: Y 8. Opioid Therapy greater than 6 weeks: Y Opiate Contract Signed: 12/03/15 9. Risk Assessment Tool Provided: MOD RISK 4 10. Functional Assessment Tool: 11. Recreational Drug Use: Never Drug Type: Tobacco Use: Current Every Day Smoker Tobacco Type: Cigarettes Amount or Packs/day: 1/2 PACK How Many Years: 45 Alcohol Use: No Frequency: Quant:
== END ==
LOC: PAIN 06:44
DX: M54.16 Radiculopathy, lumbar region (principal); G89.29 Other chronic pain; J43.9 Emphysema, unspecified; E11.40 Type 2 diabetes mellitus with diabetic neuropathy, unspecified; K21.9 Gastro-esophageal reflux disease without esophagitis; M19.90 Unspecified osteoarthritis, unspecified site; I10 Essential (primary) hypertension; Z87.01 Personal history of pneumonia (recurrent); Z99.81 Dependence on supplemental oxygen; Z79.899 Other long term (current) drug therapy

== ENCOUNTER → 2018-11-08 | Outpatient (CLI) | payer OTHER ==
[~2018-11-08] VITALS: Ht 170.2 cm; Wt 87.9 kg
[2018-11-08 09:08] VITALS: BP 168/123
--- NOTE | 2018-11-08 09:16 | NUR ---
Pain Clinic Assessment: 1. History of Osteoarthritis: Not Applicable History of Rheumatoid Arthritis: Not Applicable 2. Height: 5 ft. 7 in. 170.2 cm. Weight: 193.8 lb. oz. 87.907 kg. Patient's BMI: 30.3 3. Vital Signs: BP: 168/123 Pulse: 98 Resp: 20 Temp: 02 Sat: 94 ECG Mon: 4. Pain Intensity: 8 5. Fall Risk: Dizziness: N Needs help standing or walking: Y Fallen in the last 3 months: Y Fall risk comments: NON INJURY FALL 6. Patient on Blood Thinner: None 7. History of Hypertension: Y 8. Opioid Therapy greater than 6 weeks: Y Opiate Contract Signed: 12/03/15 9. Risk Assessment Tool Provided: MOD RISK 4 10. Functional Assessment Tool: 11. Recreational Drug Use: Never Drug Type: Tobacco Use: Current Every Day Smoker Tobacco Type: Cigarettes Amount or Packs/day: 1/2 How Many Years: 45 Alcohol Use: No Frequency: Quant:
--- NOTE | 2018-11-13 17:05 | HPC ---
[facility] [place] [address] PAIN MANAGEMENT CONSULTATION Name: SUNNY TANG Room #: REG [facility]..#: [id number] Admission: 11/08/18 ������������������ Attend Phys: Ashley Kumar MD Discharge: ������������������ Date of : 63 Report #: [id number] THIS REPORT FOR: //name// CC: JEREMY Kumar Physician staff DATE OF SERVICE: 11/08/2018 CHIEF COMPLAINT: I fell and face planted. I hurt my left knee. HISTORY: The patient is a 53-year-old female, who has been followed in the pain clinic. She has history of chronic pain. She has pain that radiates down into her legs and tailbone. She notes that her pain is problematic with activities. Changes in the weather can exacerbate her discomfort. She has been using a TENS unit to help with the pain. She states that she recently was walking. She fell and face planted into the asphalt. She has had pain in her left knee. She is wearing a bandage on it. She has been told that there is a fracture below the knee. She is hoping that it will heal. She is walking with crutches and continues to have a brace. She is hoping it heals and that she does not interrupt period of nonunion. CURRENT MEDICATIONS: Seroquel 100 mg at bedtime, 50 mg b.i.d.; Requip, Lyrica, OxyIR 10 mg q.i.d., Anoro Ellipta daily, Combivent daily, Zoloft, Zanaflex, Victoza, probiotic, Super Collagen, estrogen, Xyzal, oxcarbazepine 150 mg 3 tablets b.i.d., Lipitor, Actigall, Lamictal, Mucinex, Dexilant, Reglan, trazodone, Flomax, and albuterol. ALLERGIES: TEGRETOL. PAIN CLINIC ASSESSMENT AND PQRS: 1. The patient has osteoarthritis involving her back and legs. Denies rheumatoid arthritis. 2. Pain intensity is 8/10. 3. Fall risk. The patient did fall and injured her left knee with a fracture in the area of the knee. 4. Blood thinner. The patient is not on a blood thinning medication. 5. Hypertension. The patient is being treated for hypertension. 6. Opioids greater than 6 weeks. The patient receives her medication from the pain clinic. 7. Risk assessment tool, moderate risk for opioid use. 8. Functional assessment tool, . 9. Recreational drug use. The patient denies. 10. Tobacco: The patient continues to smoke one-half pack of cigarettes per day per her report. She smoked for the last 45 years. The patient is on oxygen. We again have warned the patient of using oxygen and tobacco with the [address] [address] PAIN MANAGEMENT CONSULTATION Name: SUNNY TANG Room #: REG [facility]#: [id number] Admission: 11/08/18 ������������������ Attend Phys: Ashley Kumar MD Discharge: ������������������ Date of : 63 Report #: [id number] possibility of increased fire hazard. 11. Alcohol. The patient denies use of alcoholic beverages. PHYSICAL EXAMINATION: GENERAL: The patient is a well-developed, well-nourished white female. She appears her stated age. She is alert and oriented x 3. Her affect is appropriate. Speech is fluent. She is wearing oxygen and breathing it through a nasal cannula. The room smells of tobacco. Height is 5 feet 7 inches, weight is 193 pounds, and BMI is 30. VITAL SIGNS: Blood pressure is 168/123, pulse is 98, respiratory rate is 20. There is no temperature. Saturation is 94%. HEENT: Normocephalic, atraumatic. Extraocular eye muscles intact. The patient has glasses on. LUNGS: Diminished breath sounds. The patient is receiving 3 liters of oxygen per minute through a nasal cannula. EXTREMITIES: Upper extremity is judged to be 4/5 for the major muscle groups. The patient is walking with use of crutches. She has a brace on her left knee. Right leg is judged to be 5-/5 and the left leg is immobilized with the brace. ASSESSMENT: 1. Lumbar radiculopathy. 2. Recent fracture of the left knee after "face planning from a fall." 3. Oxygen dependency, using oxygen. The patient smells of tobacco. 4. Instrumentation with cages in her lumbar region. 5. Chronic low back pain. 6. Dissociative identity disorder. 7. Stage 3 emphysema, requiring supplemental oxygen. 8. Diabetes. 9. Fibromyalgia. 10. Neuropathy. 11. Gastroesophageal reflux disease. 12. Pneumonia. RECOMMENDATIONS: We have discussed treatment options with the patient. At this juncture, we will continue with her medications. The patient does smell of smoke. She does have oxygen onboard. We have reminded her of the problems with use of tobacco and oxygen. These can be a lethal combination. The patient has a brace on her left knee. She states that she injured her knee when she fell. She is walking with crutches. We have tried to impress upon her the importance of stopping tobacco use at this juncture at least until her knee heels. I explained to her that this could cause a slow healing process or possible nonunion. The patient states that she would try to do this. She would like to have her medications renewed. A script for her medications have been rewritten. She feels that the medications are helpful. She is able to engage in activities, she would not be able to without their use. She states she keeps her medications in a guarded area. A script for Lyrica b.i.d., 1 in the morning [address] [address] PAIN MANAGEMENT CONSULTATION Name: SUNNY TANG Room #: REG [facility].#: [id number] Admission: 11/08/18 ������������������ Attend Phys: Ashley Kumar MD Discharge: ������������������ Date of : 63 Report #: [id number] and 2 at bedtime have been written for 100 mg tablets. The patient will also take ropinirole 0.5 mg 3 tablets at bedtime. The patient will continue with baclofen 20 mg b.i.d. and oxycodone 10 mg q.4 hours p.r.n. The patient will call us if she has any concerns. We again have discussed the benefits and risks of smoking and their association with wound healing. The patient does have some pain and discomfort radiating down into her right leg. We will consider the possibility of an epidural steroid injection in the near future. We would like to thank you for letting us to participate in her care. We hope she continues to improve. ��������������������������������������������� <ELECTRONICALLY SIGNED> ���������������������������������������� By: Ashley Kumar MD ��������������������������������������������� 11/13/18 1705 [id number] Ashley Kumar MD /[facility]
== END ==
LOC: PAIN 06:42
DX: M54.5 Low back pain (principal); M54.16 Radiculopathy, lumbar region; S82.002D Unspecified fracture of left patella, subsequent encounter for closed fracture with routine healing; X58.XXXD Exposure to other specified factors, subsequent encounter; F44.81 Dissociative identity disorder; J43.9 Emphysema, unspecified; E11.40 Type 2 diabetes mellitus with diabetic neuropathy, unspecified; K21.9 Gastro-esophageal reflux disease without esophagitis; M79.7 Fibromyalgia; J18.9 Pneumonia, unspecified organism; Z99.81 Dependence on supplemental oxygen; Z79.899 Other long term (current) drug therapy; Z88.8 Allergy status to other drugs, medicaments and biological substances

== ENCOUNTER → 2019-01-03 | Outpatient (CLI) | payer OTHER ==
[~2019-01-03] VITALS: Ht 167.6 cm; Wt 88.5 kg
[~2019-01-03] MED LIST changes: +ROPINIROLE HCL0.5 MG PO
[2019-01-03 09:15] VITALS: BP 153/84
--- NOTE | 2019-01-03 09:19 | NUR ---
Pain Clinic Assessment: 1. History of Osteoarthritis: Not Applicable History of Rheumatoid Arthritis: Not Applicable 2. Height: 5 ft. 6 in. 167.6 cm. Weight: 195.0 lb. oz. 88.452 kg. Patient's BMI: 31.5 3. Vital Signs: BP: 153/84 Pulse: 76 Resp: 18 Temp: 02 Sat: 96 ECG Mon: 4. Pain Intensity: 7 5. Fall Risk: Dizziness: N Needs help standing or walking: Y Fallen in the last 3 months: Y Fall risk comments: NON INJURY FALL 6. Patient on Blood Thinner: None 7. History of Hypertension: Y 8. Opioid Therapy greater than 6 weeks: Y Opiate Contract Signed: 12/03/15 9. Risk Assessment Tool Provided: MOD RISK 4 10. Functional Assessment Tool: 11. Recreational Drug Use: Never Drug Type: Tobacco Use: Current Every Day Smoker Tobacco Type: Amount or Packs/day: How Many Years: Alcohol Use: No Frequency: Quant:
--- NOTE | 2019-01-06 08:28 | HPC ---
[facility] [place] [address] PAIN MANAGEMENT CONSULTATION Name: SUNNY TANG Room #: REG [facility] M..#: [id number] Admission: 01/03/19 Attend Phys: Sandi Serrano Discharge: Date of : 63 Report #: [id number] THIS REPORT FOR: //name// CC: Sandi Fox Physician staff CHIEF COMPLAINT: Low back pain with lumbar radiculopathy and left knee pain. HISTORY OF PRESENT ILLNESS: This is a very pleasant 53-year-old female who has been followed in the pain clinic for several years for her history of chronic pain. Her pain radiates from her lower back and tailbone down the left leg as pins and needles and achy tenderness, but today, she is also having left knee pain from recent falls. She has fallen 3 times recently and is in a brace on her left knee today. She had an MRI performed yesterday and is going to see an orthopedic nurse practitioner at Dr. Wild's office this afternoon to see if she needs surgery on her left knee. The patient also tells me that she recently was hospitalized for rectal bleeding. She also had an MRI of her abdomen done earlier this week and is following up with her GI doctors next week regarding this episode. She does not take any nonsteroidal anti-inflammatories prior to this rectal bleeding hospitalization. The patient tells me that she has been changing her medications from her psychiatrist and is currently off her trazodone and weaning down off her Seroquel, but has started on Remeron. She has not noticed any changes in her mood from these alterations in her medications. Today, she would like refills of the medications that we prescribe for her, for her chronic ongoing pain. ALLERGIES: TEGRETOL. CURRENT LIST OF MEDICATIONS: Lyrica 100 mg b.i.d., OxyIR q.i.d., baclofen 20 mg b.i.d., [place], Requip 0.5 mg 1 in the morning and 3 at night, amlodipine 5 mg, lisinopril 10 mg, Linzess 145 mcg daily, Zoloft 150 mg daily, Seroquel 250 mg, Anoro Ellipta inhaler, Combivent inhaler, Zithromax p.r.n., Zantac 300 mg, Victoza weekly, probiotic, collagen, multivitamin Xyzal 5 mg at bedtime, Lipitor 20 mg at bedtime, Actigall 600 mg b.i.d., Lamictal 150 mg daily, Dexilant 30 mg daily, Reglan q.i.d., Flomax 0.4 mg and Remeron 15 mg at bedtime. PQRS: 1. She has a history of osteoarthritis in her lumbar spine and bilateral legs. She denies any rheumatoid arthritis. 2. Height is 5 feet 6 inches, weight is 195, BMI is 31. 3. Vital signs 153/84, pulse is 76, respirations 18, oxygen sat is 96. [address] [address] PAIN MANAGEMENT CONSULTATION Name: SUNNY TANG Room #: REG [facility] Jenaro#: [id number] Admission: 01/03/19 Attend Phys: Sandi Serrano Discharge: Date of : 63 Report #: [id number] 4. Pain score 7/10. 5. Denies dizziness. Does need help walking, has had multiple recent falls. 6. The patient is not on any blood thinners, but does have a history of hypertension. 7. Opiate therapy is greater than 6 weeks; therefore, an opioid signed contract is on the chart. Risk assessment is moderate. Functional assessment is . 8. Recreational drug use, she denies. She is a current smoker of a pack a day. ALLERGIES: Denies any alcohol use. According to the prescription monitoring system, the patient is filling appropriately for her medications and is due for her narcotics this week. There is a recent drug screen on the chart that is appropriate as well. PHYSICAL EXAMINATION: GENERAL: This is a well-developed, well-nourished white female who appears her stated age, placing her current pain score at 7/10. She is alert and orientated. The room smells of tobacco and she is wearing oxygen through nasal cannula. HEENT: Normocephalic, atraumatic. Extraocular eye muscles are intact. The patient is wearing glasses. Again, nasal cannula present with oxygen. LUNGS: Breath sounds are diminished receiving 3 liters of oxygen via nasal cannula. EXTREMITIES: Upper extremity strength judged to be 4/5 for major muscle groups. She walks with an antalgic gait. She has a knee brace on her left knee. Pain is elicited with ambulation. No swelling noted in her left knee. Right leg is judged to be 4/5 and left leg strength is diminished. She has low back pain that does radiate into her left leg and tenderness in her lumbar spine. ASSESSMENT: 1. Lumbar radiculopathy. 2. Recent fracture of the left knee. 3. Oxygen dependency, using oxygen despite continued smoking. 4. Chronic low back pain. 5. Dissociative identity disorder. 6. Stage 3 emphysema requiring supplemental oxygen. 7. Diabetes. 8. Fibromyalgia. 9. Neuropathy. 10. Gastroesophageal reflux disease. 11. Recent rectal bleeding. We reviewed the fact that opiate medications are being used to provide analgesia adequate to support activities of daily living, not attempting to achieve a specific pain score on the 0-10 Visual Analog Scale. The current opiate medications are providing sufficient analgesia to allow the patient to [facility] [address] [place] [address] PAIN MANAGEMENT CONSULTATION Name: KITTYSUNNY DAVE [facility] [id number] Admission: 01/03/19 Attend Phys: Sandi Serrano Discharge: Date of : 63 Report #: [id number] participate in activities of daily living. The patient is not exhibiting any aberrant behavior suggestive of drug diversion. The patient is not having any adverse reactions to medications. The patient is not suffering from daytime somnolence or mental acuity changes. The patient is managing opiate-induced constipation with appropriate [id number] agents and dietary considerations. The patient was counseled on concern for caution with operating a motor vehicle while using opiate medications. A physical exam was performed and the patient's functional status was evaluated. All patients with back pain were advised against the bed rest greater than 4 days and were advised to return to normal activities. Pain score assessment was noted and the treatment plan was reviewed with the patient. All current medications, both prescribed and OTC were reviewed and reconciled on the electronic medical record. Tobacco screening was accomplished and smoking cessation was advised when indicated. BMI was noted and diet/exercise modification was recommended for all patients following outside normal parameters. I reviewed with the patient today their responsibilities to safeguard prescription medications, reviewed their responsibility to utilize medications only as prescribed by the physician. They are to seek and receive pain medications only from 1 physician group ([facility]). They are to use 1 pharmacy and keep the clinic informed if they change pharmacies. Their responsibilities include making followup visits in a timely fashion and to avoid abrupt discontinuation of medication usage. Their responsibilities further include bringing their medications (bottles from the pharmacy with residual pills) to the visit for possible confirmation of pill counts and the patient understands it is their responsibility to submit to random drug screens to ensure both that the medications prescribed are present, and that no other controlled substances are present. All prescriptions provided today were generated electronically. PLAN: 1. We discussed treatment options with the patient. I reemphasized again with the patient that she needs to stop smoking. She has continued to smoking 1 pack a day despite wearing oxygen and having stage 3 emphysema. The patient tells me her plan is to stop soon with her psychiatrist giving her Chantix. I again expressed the importance of trying to stop smoking that will help with some of her pain issues and her breathing issues may hopefully be beneficial as well with her to stop smoking as well as the safety in her home when she continues to smoke despite having oxygen nearby. 2. We did talk about constipation issues. The patient is currently on Linzess p.r.n. and does use a stool softener. I encouraged her to use that as often as every day, if she becomes too constipated. 3. Scripts given today for baclofen 20 mg b.i.d. #60, with 5 additional refills; Requip 0.5 mg 1 in the morning and 3 at night, #120, with [address] [address] PAIN MANAGEMENT CONSULTATION Name: KITTYSUNNYGABRIELA ACOSTA Room #: CHRISTY Eason#: [id number] Admission: 01/03/19 Attend Phys: Sandi Serrano Discharge: Date of : 63 Report #: [id number] refills; Lyrica 100 mg b.i.d. 1 in the morning and 2 at night, quantity 90 with 5 additional refills and oxycodone 10 mg, #120, for today and 4-week release. 4. The patient did request coming every 3 months. I did calculate her morphine mEq. According to the CDC guidelines, she is at 60. According to our clinic policy, she is seen every 2 months. 5. I did encourage the patient to get a walker. We did look at them online showing her one that she could sit down when she becomes short of breath, but also could place her oxygen canister on the seat when she is ambulating. I believe this will help with her unsteady gait since she has had multiple falls and weakness in her legs. 6. Dr. Kumar did see the patient as well today and collaborated care. <ELECTRONICALLY SIGNED> By: Sandi Serrano 01/06/19 0828 1014 [id number] Sandi Serrano /nt
== END ==
LOC: PAIN 11-20 10:49
DX: M54.16 Radiculopathy, lumbar region (principal); F44.9 Dissociative and conversion disorder, unspecified; J43.9 Emphysema, unspecified; M79.7 Fibromyalgia; K21.9 Gastro-esophageal reflux disease without esophagitis; E11.40 Type 2 diabetes mellitus with diabetic neuropathy, unspecified; Z88.8 Allergy status to other drugs, medicaments and biological substances; Z79.899 Other long term (current) drug therapy